=== PATIENT | female | born 1940 | race Hispanic/Latino ===

== ENCOUNTER 2019-07-09 09:43 | Inpatient (IN) | payer MEDICARE ==
[~2019-07-09] VITALS: Ht 152.4 cm; Wt 73.5 kg
[2019-07-09] VITALS (9 sets, daily range): BP systolic 97–121; BP diastolic 59–102
--- OUTSIDE RECORDS SUMMARY | 2019-07-09 09:45 | XMS REPORT ---
Author Author [facility] Address Unknown Phone Unavailable Care Team Providers Care Sed Special Education Teacher Name Role Phone Unavailable Unavailable Payers Payer Name Policy Type Policy Number Effective Date Expiration Date Problems This patient has no known problems. Allergies, Adverse Reactions, Alerts Allergy Name Allergy Type Status Severity Reaction(s) Onset Date Inactive Date Treating Clinician Comments Penicillins DA Active U 2018-06-16 00:00:00 No Known Allergies DA Active U 2018-05-17 00:00:00 No Known Drug Intolerances DA Active U 2009-08-08 00:00:00 No Known Intolerances DA Active U 2009-08-08 00:00:00 Medications This patient has no known medications.
[2019-07-09 10:25] LABS: BASOPHILS # (AUTO) 0.1 (0.0-0.1); BASOPHILS % 0.3 % (0.0-1.0); EOSINOPHILS % 0.2 % (0.0-6.0); HEMATOCRIT 27.4 % (34.2-44.1); HEMOGLOBIN 8.8 g/dL (12.0-16.0); LYMPHOCYTES # (AUTO) 2.5 (1.0-3.2); LYMPHOCYTES % 11.5 % (18.0-39.1); MEAN CORPUSCULAR HEMOGLOBIN 29.2 pg (28-32); MEAN CORPUSCULAR HGB CONC 32.1 g/dL (31-35); MONOCYTES # (AUTO) 1.1 (0.2-0.8); MONOCYTES % 5.3 % (4.4-11.3); NEUTROPHILS # (AUTO) 17.5 (2.1-6.9); NEUTROPHILS % 81.7 % (38.7-80.0); PLATELET COUNT 286 x10e3/uL (140-360); RED BLOOD COUNT 3.01 x10e6/uL (3.6-5.1); RED CELL DISTRIBUTION WIDTH 14.4 % (11.7-14.4)
[2019-07-09 10:27] LABS: BILIRUBIN,URINE NEGATIVE (NEGATIVE); CLARITY,URINE CLEAR (CLEAR); COLOR,URINE YELLOW (YELLOW); KETONES,URINE NEGATIVE (NEGATIVE); LEUKOCYTE ESTERASE ,URINE SMALL (NEGATIVE); NITRITE,URINE NEGATIVE (NEGATIVE); PROTEIN,URINE DIPSTICK NEGATIVE (NEGATIVE); URINE UROBILINOGEN 0.2 mg/dL (0.2 - 1)
[2019-07-09 10:39] LABS: ALANINE AMINOTRANSFERASE 8 IU/L (0-55); ALBUMIN 3.3 g/dL (3.5-5.0); ALBUMIN/GLOBULIN RATIO 0.8 (0.8-2.0); ALKALINE PHOSPHATASE 81 IU/L (40-150); ANION GAP 19.1 mmol/L (8-16); BLOOD UREA NITROGEN 31 mg/dL (7-26); BUN/CREATININE RATIO 18 (6-25); CARBON DIOXIDE 19 mmol/L (22-29); CHLORIDE 103 mmol/L (98-107); CREATINE KINASE 68 IU/L (29-168); CREATININE, SERUM 1.68 mg/dL (0.57-1.11); EST GLOMERULAR FILTRATION RATE 30 ML/MIN (60-); GLUCOSE 172 mg/dL (74-118); MAGNESIUM 1.8 MG/DL (1.3-2.1); POTASSIUM 4.1 mmol/L (3.5-5.1); SODIUM 137 mmol/L (136-145)
[2019-07-09 10:49] LABS: BACTERIA,URINE MANY /HPF; EPITHELIAL CELLS,URINE MANY /LPF
[2019-07-09 10:51] LABS: WBC,URINE (MAN) >50 /HPF (0-5)
[2019-07-09 10:52] LABS: AMORPHOUS SEDIMENT,URINE FEW (FEW)
[2019-07-09] MEDS ORDERED: LISINOPRIL20 MG (10:56)
[2019-07-09] MEDS ORDERED: ATORVASTATIN CA80 MG (10:56)
[2019-07-09] MEDS ORDERED: K DUR10 MEQ (10:56)
[2019-07-09] MEDS ORDERED: WARFARIN SODIUM5 MG (10:56)
[2019-07-09] MEDS ORDERED: CARVEDILOL25 MG (10:56)
[2019-07-09] MEDS ORDERED: ALENDRONATE SOD70 MG (10:56)
[2019-07-09] MEDS ORDERED: LOSARTAN POTASS25 MG (10:56)
[2019-07-09] MEDS ORDERED: OMEPRAZOLE40 MG (10:56)
[2019-07-09] MEDS ORDERED: BENZONATATE100 MG (10:56)
[2019-07-09] MEDS ORDERED: FUROSEMIDE40 MG (10:56)
[2019-07-09] MEDS ORDERED: AMLODIPINE BESY10 MG (10:56)
[2019-07-09] MEDS ORDERED: PANTOPRAZOLE 40 MG 10ML VIAL IV ONE (11:00)
[2019-07-09] MEDS: SODIUM CHLORIDE 0.9% 1000ML 1,000 ML IV STA ×2 (11:03→13:20)
[2019-07-09] MEDS ORDERED: SODIUM CHLORIDE 0.9% 1000ML 1,000 ML IV SCH ×2 (11:07→13:23)
--- NOTE | 2019-07-09 11:12 | NUR ---
MULTIPLE NURSES AND MULTIPLE IV ATTEMPTS UNSUCCESSFUL. LABS OBTAINED, BUT NO IV LINE. AWARE, ORDERING PICC LINE. HS ATTEMPTED ULTRASOUND GUIDED PIV UNSUCCESSFUL WELL.
[2019-07-09] MEDS ORDERED: ONDANSETRON HCL INJ 2MG/ML 2ML 2 MG/ML VIAL IV PRN ×3 (11:15→17:15)
[2019-07-09] MEDS ORDERED: MORPHINE SULFATE 2 MG/ML SYR 1ML IV PRN (11:15)
--- NOTE | 2019-07-09 11:17 | NUR ---
high read on co-ags per lab, need another blue top, lab to come re-draw.
--- NOTE | 2019-07-09 11:26 | Diagnostic Imaging Report ---
EXAMINATION: CHEST SINGLE (PORTABLE) INDICATION: Altered mental status COMPARISON: None FINDINGS: LINES/TUBES:EKG leads overlie the chest. LUNGS:The lung volumes are low. No focal consolidation or pulmonary edema. PLEURA:No pleural effusion or pneumothorax. MEDIASTINUM:The cardiomediastinal silhouette appears normal in size and shape. Atherosclerotic calcifications of the thoracic aorta. BONES/SOFT TISSUES:No acute osseous injury. ABDOMEN:No free air under the diaphragm. IMPRESSION: Low lung volumes. No focal pneumonia or pulmonary edema. Signed by: Hiro Pompa MD on 07/09/2019 11:23 AM
--- NOTE | 2019-07-09 11:26 | Diagnostic Imaging Report ---
EXAMINATION: PELVIS AP 1-2 VIEWS INDICATION: Altered mental status, fall COMPARISON: None FINDINGS: No acute fracture or dislocation. Alignment is anatomic. Degenerative changes of the lower lumbar spine and both hip joints. Phleboliths in the pelvis. Nonobstructive bowel gas pattern. No free air. IMPRESSION: No acute osseous injury. Signed by: Hiro Pompa MD on 07/09/2019 11:22 AM
--- NOTE | 2019-07-09 11:33 | NUR ---
consent on chart for blood and picc line
--- NOTE | 2019-07-09 11:54 | NUR ---
consent signed on chart. extensive teaching and update to spouse and son. son very passive aggressive with staff. pt remains hemodynamically stable. 2nd co-ags redrawn by lab for results.
--- NOTE | 2019-07-09 12:05 | NUR ---
blood banded, id banded, yellow fall socks and banded.
--- NOTE | 2019-07-09 12:05 | Diagnostic Imaging Report ---
Examination: CT BRAIN WO CONTRAST History:Unresponsive. Confusion. Weakness. Fall on Coumadin Comparison studies:None Technique: Axial images were obtained from the skull base to the vertex. Coronal and sagittal images reconstructed from the axial data. Dose modulation, iterative reconstruction, and/or weight based adjustment of the mA/kV was utilized to reduce the radiation dose to as low as reasonably achievable. Intravenous contrast: None Findings: Scalp: No abnormalities. Bones: No fractures, blastic or lytic lesions. Brain sulci: Appropriate for age. Ventricles: Normal in size and configuration. No hydrocephalus. Extra-axial space: No abnormalities. Parenchyma: No masses, hemorrhage, or acute cortical based vascular insults. There is cortical base encephalomalacia involving the left superior parietal lobule and extending to the left periventricular/periatrial white matter. Chronic lacunar infarct in the right centrum semiovale. There are patchy and confluent areas of hypoattenuation in the periventricular and subcortical white matter, nonspecific. Sellar/suprasellar region: No abnormalities. Craniocervical junction: Patent foramen magnum. No Chiari one malformation. Incidental findings: Atherosclerotic calcification of the cavernous and supraclinoid internal carotid and V4 segments of the bilateral vertebral arteries. Impression: No acute intracranial abnormality. Chronic right MCA-ANTITANK ASSAULT GUNNER infarct. Severe chronic microvascular ischemic change. Signed by: Dr. Cecilia Blake M.D. on 07/09/2019 12:02 PM
--- NOTE | 2019-07-09 12:14 | Diagnostic Imaging Report ---
Examination: CT CERVICAL SPINE WO CONTRAST HISTORY:Neck injury after fall. COMPARISON:None. TECHNIQUE: Multidetector helical axial images were obtained without contrast from the foramen magnum to T1. Coronal and sagittal reformatted images were done. Bone and soft tissue windows were evaluated. Dose modulation, iterative reconstruction, and/or weight based adjustment of the mA/kV was utilized to reduce the radiation dose to as low as reasonably achievable. FINDINGS: Alignment:Normal alignment and lordosis. Mild retrolisthesis of C3 on C4 and C4 on C5. Vertebrae: Normal height and density. No acute fracture, infection or neoplasm. Disc space heights: Mildly narrowed at C4-C5. Caliber of spinal canal: Developmentally normal. Posterior fossa and craniocervical junction: Foramen magnum patent. No Chiari 1 malformation. Soft tissues: Opacified left middle ear cavity with sclerosis of the mastoid air cells. Partial opacification of the mastoid cavity on the right. There is superficial/subcutaneous emphysema in the left clavicular region, which could be from recent attempt of a procedure. Degenerative changes: Diffuse disc osteophyte complex at C3-C4 and mild bilateral uncovertebral and facet arthropathy result in mild right neural foraminal narrowing. No left foraminal or canal stenosis. C4-C5: Asymmetric to the right disc osteophyte complex and right uncovertebral and bilateral facet arthropathy result in moderate right neural foraminal narrowing. No left foraminal or canal stenosis. C5-C6: Severe right facet arthropathy results in mild right neural foraminal narrowing at C5-C6. No left foraminal or canal stenosis. Remaining cervical levels demonstrate no disc herniation or canal stenosis. Visualized lung apices: No abnormalities. IMPRESSION: No acute fracture of the cervical spine. Signed by: Dr. Cecilia Blake M.D. on 07/09/2019 12:11 PM
--- NOTE | 2019-07-09 12:19 | Diagnostic Imaging Report ---
EXAM: CT Abdomen and Pelvis WITHOUT intravenous contrast INDICATION: Abdominal pain, diarrhea COMPARISON: None TECHNIQUE: Abdomen and pelvis were scanned utilizing a multidetector helical scanner from the lung base to the pubic symphysis without administration of IV contrast. Coronal and sagittal reformations were obtained. IV CONTRAST: None ORAL CONTRAST: None COMPLICATIONS: None RADIATION DOSE: Total DLP: 522.7 mGy*cm Dose modulation, iterative reconstruction, and/or weight based adjustment of the mA/kV was utilized to reduce the radiation dose to as low as reasonably achievable. FINDINGS: LOWER THORAX: Mild bibasilar dependent subsegmental atelectasis. Mild scattered coronary artery atherosclerotic calcifications. Moderate hiatal hernia. HEPATOBILIARY: No focal liver lesion. Unremarkable gallbladder. SPLEEN: No splenomegaly. PANCREAS: No focal masses or ductal dilatation. ADRENALS: No adrenal nodules. KIDNEYS/URETERS: No hydronephrosis, stones, or solid mass lesions. PELVIC ORGANS/BLADDER: Small amount of air in the bladder. PERITONEUM / RETROPERITONEUM: No free air or fluid. LYMPH NODES: No lymphadenopathy. VESSELS: Atherosclerotic calcifications of the nonaneurysmal abdominal aorta and major branches. GI TRACT: Approximately 15 cm loop of abnormally thickened small bowel in the pelvis with wall thickness measuring up to 16 mm. There is substantial significant mesenteric fat stranding and fluid and a small amount of free air (series 2 image 72). There is mild swelling of the mesenteric vessels. Diffuse colonic diverticulosis including of the right colon without CT evidence of diverticulitis. Mild diffuse pericolonic fat stranding is likely reactive. Normal appendix. BONES AND SOFT TISSUES: No acute osseous injury. No suspicious lytic or blastic lesions. Marked degenerative changes of the visualized spine. Grade 1 retrolisthesis at L1-2, L2-3 and L3-4 and grade 1 anterolisthesis at L4-5. IMPRESSION: Loop of abnormally thickened small bowel in the pelvis with small amount of free air consistent with perforation. Significant associated mesenteric inflammation with mild swirling of the superior mesenteric branches leading up to the affected loop. Findings are concerning for severe enteritis with possible bowel ischemia. Surgical consult is recommended. The above findings were discussed with Dr. Steven on 07/09/2019 12:07 PM, who responded indicating that the communication was understood. Signed by: Hiro Pompa MD on 07/09/2019 12:16 PM
[2019-07-09] MEDS ORDERED: SODIUM CHLORIDE 0.9% 1000ML 1,000 ML IV STA (12:20)
[2019-07-09] MEDS ORDERED: SODIUM CHLORIDE 0.9% 250ML 250 ML IV ONE (12:30)
[2019-07-09] MEDS ORDERED: FUROSEMIDE INJ 10 MG/ML 2 ML VIAL IV PRN (12:30)
[2019-07-09 12:38] LABS: INR > 5.1; PROTHROMBIN TIME > 100.0 seconds (11.9-14.5)
[2019-07-09 12:39] LABS: PARTIAL THROMBOPLASTIN TIME > 150.0 seconds (23.8-35.5)
[2019-07-09] MEDS: MEROPENEM 1GRAM 1 GM in SODIUM CHLORIDE 0.9% 100 ML 100 ML IV SCH ×2 (13:15→21:19)
--- NOTE | 2019-07-09 13:20 | NUR ---
called lab regarding need for lactic redraw that was due at 1240 per stat order. had delay for ivf d/t no IV ACCESS. had to wait for 2nd inr draw and report. inr too high and picc line cannot place. did central line access. court gave icu bed number, ivf still running and md wanted to wait til ivf finished for 2nd lactic draw, lab notified and pt to icu 191 and lab called for repeat stat lactic draw since ivf's almost completed.
[2019-07-09] MEDS: PANTOPRAZOLE 40 MG 10ML VIAL IV SCH ×2 (13:30→21:19)
[2019-07-09] MEDS ORDERED: PHYTONADIONE 10 MG/ML AMP SC ONE (13:45)
--- NOTE | 2019-07-09 14:22 | NUR ---
wellington called back and spoke with md xiong or called back for alejandro regarding pt
[2019-07-09] MEDS ORDERED: HEPARIN SOD/SOD CHLORIDE 1,000 ML ONE (14:37)
[2019-07-09 15:49] LABS: HEMOGLOBIN 6.8 g/dL (12.0-16.0)
[2019-07-09 15:50] LABS: HEMATOCRIT 21.2 % (34.2-44.1)
--- NOTE | 2019-07-09 17:01 | History and Physical ---
PRIMARY CARE PHYSICIAN: Yousuf Perez MD. CONSULTANTS: 1. Yuri Coyle MD. 2. Gigi Browning MD. CHIEF COMPLAINT: Rectal bleed, abdominal pain, and ischemic bowel. HISTORY OF PRESENT ILLNESS: This is a 79-year-old female, not much history I can obtain at this time. The patient is about to go to the operating room with Dr. Yuri Coyle. The patient has coagulopathy, 2 Jumbo units of FFP was given. The patient is on anticoagulant therapy for atrial fibrillation. Apparently, came in with abdominal pain and rectal bleed. CT scan of the abdomen and pelvis shown a loop of abnormal thickening of small bowel and pelvis, small amount of free air consistent with perforation. Mesenteric inflammation. Severe enteritis. Bowel ischemia. Surgical intervention is pending at this time. Her hemoglobin and hematocrit dropped down from 8.8 to 6.8 and 21.2. Other include stool for occult blood is positive. Obviously, the patient with acute blood loss anemia with lactic acid of 2.6. The patient also had a BUN and creatinine of 31 and 1.68 respectively. Coagulation, the patient's INR is greater than 5. Her PTT is greater than 150. Her PT is greater than 100. The patient is severely coagulopathy at this time due to most likely acute peritonitis along with no coagulation. The patient is critically stable at this time. 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 Hypertension, osteoporosis, dyslipidemia, reflux. Anticoagulant therapy with warfarin 5 mg daily. 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 SOCIAL HISTORY: The patient lives with her family, very well family support. ALLERGIES: NO KNOWN ALLERGIES. HOME MEDICATIONS: Alendronate, Norvasc, Lipitor, Tessalon Perles, Coreg, Lasix, lisinopril, losartan, omeprazole, potassium, and warfarin. PHYSICAL EXAMINATION: VITAL SIGNS: Temperature is 98, blood pressure 120/54, pulse rate is 81, and respirations 20. GENERAL: The patient is awake. She is not in any distress. She is critically ill, however. HEENT: Normocephalic and atraumatic. Anicteric. NECK: Supple grossly. PULMONARY: Diminished breath sounds. CARDIOVASCULAR: Irregularly irregular rate control. ABDOMEN: Non-distention. Generalized discomfort. No rebound. EXTREMITIES: No cyanosis or edema. NEUROLOGIC: Limited at this time. LABORATORY DATA: As mentioned above. Sodium is 137, potassium 4.1, chloride 103, bicarb 19, BUN 31, creatinine 1.6, and glucose is 172. Lactic acid 2.6. AST 9, ALT 8, and alkaline phosphatase 81. Albumin is 3.3. WBC 21, hemoglobin 8.8 down to 6.8, hematocrit 27.2 down to 21.2, and platelets 286. Fecal occult blood positive. IMPRESSION: 1. Acute ischemic bowel associated with peritonitis, leukocytosis, and rectal bleed, GI bleed. 2. Severely coagulopathy, most likely a combination of medication and current status. 3. Atrial fibrillation, rate controlled. 4. Anticoagulant therapy. 5. History of cerebrovascular accident, hypertension, dyslipidemia, and diabetes. PLAN: Supportive measure. Surgical intervention. FFP. Blood transfusion. Repeat lab work. Surgical intervention. Antibiotics. We will monitor this patient closely and after surgical intervention. The patient will need to continue with ICU care. Consultation with critical care with Dr. Willie Moon on-call. MD MARTI Dominguez/DAVID /[id number]
[2019-07-09] MEDS: MORPHINE SULFATE 2 MG/ML SYR 1ML IV PRN ×2 (17:35→23:58)
--- NOTE | 2019-07-09 18:47 | Consultation ---
DATE OF CONSULTATION: Pulmonary Critical Care Consultation CHIEF COMPLAINT: Abdominal pain, intestinal perforation, and possible ischemic bowel. HISTORY OF PRESENT ILLNESS: The patient is a 79-year-old woman with a history of atrial fibrillation and 3 prior strokes. She was last hospitalized about a year ago for a cerebrovascular accident. She has been on warfarin since that time. She does not have any history of prior diverticulitis or gastrointestinal problems. Two to three days ago, she developed some abdominal pain. She did not have any fevers. She did not have any vomiting. She did have some diarrhea. She came to the emergency department and was found to have a leukocytosis. A CT scan of the abdomen and pelvis showed findings consistent with severe enteritis and possible ischemic bowel. She also had free air consistent with a perforation. She is now in the ICU and has been seen by General Surgery. She is awaiting laparotomy. She had an INR that was greater than 5.1 and the PT that was greater than 100. She has received 10 mg of vitamin K and is now receiving fresh frozen plasma. PAST MEDICAL HISTORY: 1. Prior cerebrovascular accidents x3. 2. Atrial fibrillation. 3. Hypertension. PAST SURGICAL HISTORY: Status post hysterectomy. SOCIAL HISTORY: The patient is not a smoker. She is not a drinker. ALLERGIES: THERE ARE NO KNOWN DRUG ALLERGIES. REVIEW OF SYSTEMS: There was no fever. She is not having any headache. She has no neck pain. She is not having any chest pain or difficulty breathing. She does have abdominal pain. There is some diarrhea. She has no leg edema. PHYSICAL EXAMINATION: VITAL SIGNS: The patient is afebrile. The blood pressure is 120/54 and the pulse is 81. Saturation is 98%. HEENT: Shows no facial swelling or erythema. CARDIAC: Reveals a regular rate and rhythm with normal S1 and S2. LUNGS: Auscultation of lungs reveals clear breath sounds bilaterally. There is no wheezing. ABDOMEN: Tender. There is no rebound. EXTREMITIES: Shows no leg edema or calf tenderness. There is a femoral line in the right groin. LABORATORY DATA: BUN to creatinine ratio is 31 to 1.68 with a bicarbonate of 19. The white blood cell count is 21.4 and hemoglobin is 8.8. The platelet count is 286. Urinalysis shows greater than 20 white blood cells. IMPRESSION: 1. Ischemic bowel and peritonitis with severe sepsis, present on admission. 2. Coagulopathy secondary to warfarin and sepsis. 3. Acute kidney injury. 4. Atrial fibrillation. 5. Hypertension. 6. Prior cerebrovascular accidents. PLAN: 1. The patient is currently on IV antibiotics. 2. She has received 30 mL/kg of IV fluid. 3. We are awaiting laparotomy and surgical intervention. 4. Complete FFP. 5. Monitor coags. 6. Continue to monitor renal function. Willie Moon MD Rick/MODL /[id number]
[2019-07-09] MEDS: DEXTROSE 5%/LACTATED RINGERS 1,000 ML IV SCH (18:57)
--- NOTE | 2019-07-09 19:23 | Consultation ---
DATE OF CONSULTATION: 07/09/2019 HISTORY OF PRESENT ILLNESS: The patient is a 79-year-old female, presenting to the emergency room with complaints of abdominal pain. She says she has had lower abdominal pain for some time, but much worse over the last few days. Evaluation reveal signs of sepsis. CT of the abdomen and pelvis revealed very thickened and inflamed segment of small bowel with appeared to be area of perforation. PAST MEDICAL HISTORY: Significant for hypertension, hypercholesterolemia, intermittent atrial fibrillation. She has had previous hysterectomy. She states she has had previous cerebrovascular accident. She has had previous abdominal surgery and she has a hysterectomy. MEDICATIONS: At home were alendronate, amlodipine, atorvastatin, benzonatate, carvedilol, Lasix, lisinopril, losartan, omeprazole, potassium, and warfarin. ALLERGIES: SHE HAS NO KNOWN ALLERGIES. FAMILY HISTORY: Noncontributory. SOCIAL HISTORY: The patient lives with her family. Does not smoke cigarettes or drink alcohol. REVIEW OF SYSTEMS: Cannot be obtained. PHYSICAL EXAMINATION: GENERAL: The patient is alert. Does not really answer questions. She has complains of lower abdominal pain, however. HEENT: The sclerae are not icteric. NECK: Supple with no masses. LUNGS: Equal breath sounds are clear bilaterally. CARDIAC: Regular rate and rhythm with no murmur. ABDOMEN: Tender in the lower abdomen with signs of peritonitis. There is mild distention. There was no organomegaly. EXTREMITIES: Have no edema. NEUROLOGIC: Difficult to assess, though she does move her upper extremities. Pupils are equal, round, and reactive to light. LABORATORY TESTS: The white blood cell count is elevated at 21.4, hemoglobin 8.8, and hematocrit 27.4. Chemistries revealed elevated lactic acid on arrival, mild metabolic acidosis, BUN elevated at 31 and creatinine 1.7. Coags are significantly prolonged. ASSESSMENT: A 79-year-old female with what appears to be an inflamed segment of small bowel with probable perforation contained in the lower abdomen with signs of peritonitis. She has abnormal coagulation studies and be transfuse with fresh frozen plasma, but she will need to undergo surgery, which would be exploratory laparotomy with probable small bowel resection. Proposed surgery was explained to the patient and her family including risks, benefits, and alternatives and they understands. They had the opportunity to ask questions. Thank you for asking me to see Ms. Salmon. Yuri W MD PAPI Coyle/DAVID /[id number]
--- NOTE | 2019-07-09 19:32 | Operative Report ---
DATE OF PROCEDURE: 07/09/2019 SURGEON: Yuri Coyle MD PREOPERATIVE DIAGNOSIS: Small bowel gangrene with contained perforation. POSTOPERATIVE DIAGNOSIS: Small bowel gangrene with contained perforation secondary to partial small bowel volvulus. PROCEDURES: Exploratory laparotomy, small bowel resection, and lysis of adhesions. UMBRELLA TIPPER HAND: None. ANESTHESIA: General endotracheal. INDICATIONS AND FINDINGS: The patient is a 79-year-old female, admitted to the hospital with complaints of severe lower abdominal pain. Workup reveals portion of small bowel that was very thickened and inflamed appearing with a contained perforation. At surgery, there was partially twisted the segment of small bowel, which was in the distal ileum, which was gangrenous. No priyanka perforation was noted. There was some hemorrhagic areas in the adjacent bowel, but this all appeared viable. TECHNIQUE: After adequate general endotracheal anesthesia and patient in supine position, the abdomen was prepped and draped in sterile fashion with ChloraPrep solution. Through a lower midline incision, the peritoneal cavity was entered. There were adhesions to the abdominal wall involving omentum, which were lysed. There was a very thickened and inflamed gangrenous segment of small bowel, which was free from the lower abdomen. There were some adhesions, which were lysed, appeared to have caused a partial volvulus and a closed loop obstruction. The bowel was delivered up into the wound. The terminal ileum appeared viable. This was about the distal 12 cm of terminal ileum and the bowel proximal. The area of gangrene also appeared viable. The gangrenous bowel was resected. The bowel was appeared viable. It was divided with a MARCO stapler proximal and distally and mesentery divided with LigaSure device. Remaining small bowel examined and all appeared viable. Colon appeared viable. The anastomosis was then made between the proximal and distal bowel with a MARCO stapler and TL60 stapler. The mesentery defect was closed with 3-0 Vicryl. The peritoneal cavity was irrigated with saline and inspected for hemostasis, which was seen to be adequate. Irrigated further with saline. All fluid aspirated and inspected for hemostasis, which was seen to be adequate. The wound was then closed. The fascia was closed with running suture of #1 PDS. Subcutaneous tissue was irrigated with saline. Skin was closed with praanv. Sterile dressing was applied. The patient tolerated the procedure well. Estimated blood loss was 100 mL. There were no complications. All counts were correct and the patient was taken to the intensive care unit in critical, but stable condition. MD PAPI Elias/DAVID /[id number] cc: MD Nitin Mendoza MD
[2019-07-09] MEDS ORDERED: MEROPENEM 1 GM VIAL ONE (21:16)
[2019-07-09] MEDS ORDERED: MEROPENEM 1GM 100 ML IV ONE (21:17)
[2019-07-09 21:27] LABS: BASOPHILS % 0.2 % (0.0-1.0); HEMATOCRIT 25.1 % (34.2-44.1); HEMOGLOBIN 8.7 g/dL (12.0-16.0); LYMPHOCYTES # (AUTO) 0.9 (1.0-3.2); LYMPHOCYTES % 5.7 % (18.0-39.1); MEAN CORPUSCULAR HEMOGLOBIN 30.1 pg (28-32); MEAN CORPUSCULAR HGB CONC 34.7 g/dL (31-35); MEAN CORPUSCULAR VOLUME 86.9 fL (81-99); MONOCYTES # (AUTO) 0.8 (0.2-0.8); MONOCYTES % 5.1 % (4.4-11.3); NEUTROPHILS # (AUTO) 13.1 (2.1-6.9); NEUTROPHILS % 87.9 % (38.7-80.0); PLATELET COUNT 155 x10e3/uL (140-360); RED BLOOD COUNT 2.89 x10e6/uL (3.6-5.1); RED CELL DISTRIBUTION WIDTH 14.2 % (11.7-14.4)
[2019-07-09 21:37] LABS: INR 1.29; PROTHROMBIN TIME 16.7 seconds (11.9-14.5)
[2019-07-09 21:45] LABS: CREATINE KINASE 159 IU/L (29-168)
[2019-07-09] MEDS: METRONIDAZOLE 500MG/NS 100ML 100 ML IV SCH (21:53)
[2019-07-09 22:05] LABS: CALCIUM 7.9 mg/dL (8.4-10.2); CREATININE, SERUM 0.95 mg/dL (0.57-1.11)
[2019-07-09] MEDS ORDERED: POTASSIUM CHLORIDE 20MEQ/100ML 100 ML IV ONE (22:45)
[2019-07-10] VITALS (24 sets, daily range): BP systolic 98–143; BP diastolic 55–77
--- NOTE | 2019-07-10 02:39 | Consultation ---
DATE OF CONSULTATION: 07/09/2019 HISTORY OF PRESENT ILLNESS: This is a 79-year-old, who presented to the hospital because of some abdominal pain and rectal bleeding. CAT scan of abdomen and pelvis showed thickening of the small bowel and pelvis with small amount of free air consistent with perforations and severe enteritis, possible bowel ischemia. The patient had underwent surgery exploratory laparotomy with gangrenous small bowel resection. She is currently in the ICU in stable condition. PAST MEDICAL HISTORY: Her past medical problems are significant for atrial fibrillation with ischemic CVA, history of anticoagulation therapy, hypertension, osteoporosis, dyslipidemia, reflux. ALLERGIES: NONE. MEDICATION: At home include alendronate, Norvasc, Lipitor, Tessalon Perles, Coreg, Lasix, lisinopril, losartan, omeprazole, potassium, and warfarin. SOCIAL HISTORY: No alcohol use. FAMILY HISTORY: Noncontributory. REVIEW OF SYSTEMS: At this point, unobtainable. PHYSICAL EXAMINATION: GENERAL: Lying in bed, appears to be stable postop. VITAL SIGNS: Afebrile currently HEAD, EYES, EARS, NOSE, AND THROAT: Normocephalic, atraumatic. NG tube is in place. HEART: Regular. LUNGS: Clear. ABDOMEN: Soft at this point. EXTREMITIES: There is no clubbing. LABORATORY DATA: Hemoglobin was 6.8, hematocrit 21, . BUN 31, creatinine 1.68. CAT scan as mentioned before. IMPRESSION: 1. Ischemic bowel,status post resection. 2. Gastrointestinal bleed to ischemic bowel. 3. History of atrial fibrillation. RECOMMENDATION: Continue Entocort. Current supportive care with antibiotic. Follow clinically and postoperatively as well as follow labs. This has been discussed with the patient and with the family at bedside in long and detail. Gigi Browning MD DHD/MODL /[id number] cc: MD Yousuf Dominguez MD
[2019-07-10] MEDS: DEXTROSE 5%/LACTATED RINGERS 1,000 ML IV SCH ×3 (04:55→17:05)
[2019-07-10] MEDS: METRONIDAZOLE 500MG/NS 100ML 100 ML IV SCH ×3 (06:10→21:58)
[2019-07-10 06:18] LABS: BASOPHILS % 0.1 % (0.0-1.0); HEMATOCRIT 24.4 % (34.2-44.1); HEMOGLOBIN 8.4 g/dL (12.0-16.0); LYMPHOCYTES % 5.6 % (18.0-39.1); MEAN CORPUSCULAR HGB CONC 34.4 g/dL (31-35); MEAN CORPUSCULAR VOLUME 87.1 fL (81-99); MONOCYTES # (AUTO) 1.4 (0.2-0.8); MONOCYTES % 7.5 % (4.4-11.3); NEUTROPHILS # (AUTO) 15.8 (2.1-6.9); NEUTROPHILS % 85.2 % (38.7-80.0); PLATELET COUNT 164 x10e3/uL (140-360); RED CELL DISTRIBUTION WIDTH 14.4 % (11.7-14.4)
[2019-07-10 06:28] LABS: INR 1.19; PROTHROMBIN TIME 15.7 seconds (11.9-14.5)
[2019-07-10 06:36] LABS: CREATINE KINASE 176 IU/L (29-168)
[2019-07-10 06:38] LABS: ALANINE AMINOTRANSFERASE 10 IU/L (0-55); ALBUMIN/GLOBULIN RATIO 0.9 (0.8-2.0); ALKALINE PHOSPHATASE 58 IU/L (40-150); ANION GAP 10.2 mmol/L (8-16); BLOOD UREA NITROGEN 14 mg/dL (7-26); BUN/CREATININE RATIO 17 (6-25); CALCIUM 8.2 mg/dL (8.4-10.2); CARBON DIOXIDE 26 mmol/L (22-29); CHLORIDE 108 mmol/L (98-107); CREATININE, SERUM 0.82 mg/dL (0.57-1.11); EST GLOMERULAR FILTRATION RATE > 60 ML/MIN (60-); GLUCOSE 182 mg/dL (74-118); POTASSIUM 3.2 mmol/L (3.5-5.1); SODIUM 141 mmol/L (136-145)
--- NOTE | 2019-07-10 06:43 | Diagnostic Imaging Report ---
EXAMINATION: CHEST SINGLE (PORTABLE) COMPARISON: Chest x-ray 07/09/2019 INDICATION: Sepsis ^sepsis ^[id number] DISCUSSION: Frontal view of the chest obtained at 0552 hours. Lung volumes are low. HEART AND MEDIASTINUM: The heart is top normal in size to mildly enlarged. LINES: None. LUNGS: Central pulmonary vasculature is prominent due to low lung volumes. No gross infiltrates. PLEURA: No pleural effusion or pneumothorax. BONES AND SOFT TISSUES: No focal osseous lesion. The soft tissues are normal. IMPRESSION: Compromised examination due to low lung volumes. This results in prominence of the central pulmonary vasculature. No infiltrates on this image. Signed by: Dr. Winnie Quinones MD on 07/10/2019 6:39 AM
[2019-07-10] MEDS: PANTOPRAZOLE 40 MG 10ML VIAL IV SCH (09:00)
[2019-07-10] MEDS: MEROPENEM 1GM 100 ML IV SCH ×2 (09:29→20:32)
--- NOTE | 2019-07-10 12:46 | Progress Note ---
DATE: SUBJECTIVE: The patient underwent laparotomy yesterday. She had a partial small bowel resection associated with ischemic bowel and perforation. She is now back in the ICU and is doing well. She is off pressors. PHYSICAL EXAMINATION: VITAL SIGNS: The blood pressure is 143/60, saturation is 96% on 2 L. HEENT: Shows no facial swelling or erythema. CARDIAC: Reveals a regular rate and rhythm with normal S1 and S2. LUNGS: Auscultation of lungs reveals decreased breath sounds at the bases. ABDOMEN: Soft. There is some tenderness postoperative. There is no leg edema. There are SCDs in place. IMPRESSION: 1. Ischemic bowel and peritonitis with severe sepsis present on admission. 2. Coagulopathy that is being corrected with vitamin K. 3. Acute kidney injury. 4. Atrial fibrillation. 5. Prior cerebrovascular accidents. 6. Hypertension. PLAN: 1. Continue current antibiotics. 2. Continue to monitor kidney function and electrolytes. 3. Continue to monitor blood pressure and restart home medications. 4. Continue DVT prophylaxis with sequential venous compression devices. Willie Moon MD [facility]/MODL /[id number]
[2019-07-10] MEDS: AMLODIPINE BESYLATE 10 MG TAB PO SCH (13:00)
--- NOTE | 2019-07-10 16:03 | NUR ---
RD Recommendation for Physician: -Advance to GI soft diet when medically appropriate Plan of Care: RD following, monitoring for tolerance and adequacy Nutrition reason for involvement: MST Primary Diagnose(s): coagulopathy, ischemia of bowel, renal insufficiency, sepsis, small bowel perforation PMH: afib with ischemic CVA, HTN, osteoporosis, dyslipidemia, and reflux Ht: 60 in Wt:170 lb BMI: 33 kg/m2 IBW:[address] Assessment: (07/10/19) Chart reviewed. Labs and meds reviewed. Pt is a 79 year old female admitted with coagulopathy, ischemia of bowel, renal insufficiency, sepsis, and small bowel perforation. Pt is post-op day 1 from exploratory lap with bowel resection. Spoke to family member at bedside since pt was sleeping. Pt was NPO at time of visit. Family member reported pt usually eats all of her meals and her wt has been stable. Pt consumes soft foods due to chewing issues. Family member thinks pt usually weighs 151 lbs; however, pt has a wt of 170 lbs in chart. Will continue to monitor. Current Diet: NPO Malnutrition Evaluation (07/10/19) The patient does not meet criteria for a specified degree of malnutrition at this time. Will re-evaluate at follow-up as appropriate. Diet Education Needs Assessment: Diet education not indicated at this time. Nutrition Care Level: Low Signed: Virgen Garcia, RD, LD
[2019-07-10] MEDS: LISINOPRIL 20 MG TAB PO SCH (17:00)
[2019-07-10] MEDS ORDERED: FENTANYL CITRATE/PF 100MCG/2 ML INJ ONE (17:52)
[2019-07-10] MEDS ORDERED: ROCURONIUM BROMIDE 10 MG/ML 5ML VIAL ONE (19:21)
[2019-07-10] MEDS ORDERED: SEVOFLURANE INHAL SOLN 250 ML PEN BTL ONE (19:21)
[2019-07-10] MEDS ORDERED: EPHEDRINE SULFATE INJ 50 MG/10 ML SYR ONE (19:21)
[2019-07-10] MEDS ORDERED: LIDOCAINE HCL 2% LOCAL INJ 5 ML SDV VIAL INJ ONE (19:21)
[2019-07-10] MEDS ORDERED: PROPOFOL IV EMULSION 10 MG/ML 20 ML VIAL ONE (19:21)
[2019-07-10] MEDS ORDERED: ZOLPIDEM TARTRATE 5 MG TAB PO PRN (21:00)
[2019-07-11] VITALS (25 sets, daily range): BP systolic 91–142; BP diastolic 52–83
[2019-07-11] MEDS: DEXTROSE 5%/LACTATED RINGERS 1,000 ML IV SCH ×2 (02:30→16:19)
[2019-07-11 04:57] LABS: BASOPHILS % 0.1 % (0.0-1.0); EOSINOPHILS # (AUTO) 0.1 (0.0-0.4); EOSINOPHILS % 0.4 % (0.0-6.0); HEMOGLOBIN 7.7 g/dL (12.0-16.0); LYMPHOCYTES % 13.1 % (18.0-39.1); MEAN CORPUSCULAR HGB CONC 33.8 g/dL (31-35); MEAN CORPUSCULAR VOLUME 88.7 fL (81-99); MONOCYTES # (AUTO) 1.5 (0.2-0.8); MONOCYTES % 9.6 % (4.4-11.3); NEUTROPHILS # (AUTO) 11.6 (2.1-6.9); NEUTROPHILS % 74.9 % (38.7-80.0); PLATELET COUNT 174 x10e3/uL (140-360); RED BLOOD COUNT 2.57 x10e6/uL (3.6-5.1); RED CELL DISTRIBUTION WIDTH 14.5 % (11.7-14.4)
[2019-07-11 05:17] LABS: ALANINE AMINOTRANSFERASE 8 IU/L (0-55); ALBUMIN 2.7 g/dL (3.5-5.0); ALBUMIN/GLOBULIN RATIO 0.8 (0.8-2.0); ALKALINE PHOSPHATASE 59 IU/L (40-150); ANION GAP 9.1 mmol/L (8-16); BLOOD UREA NITROGEN 10 mg/dL (7-26); BUN/CREATININE RATIO 14 (6-25); CALCIUM 8.6 mg/dL (8.4-10.2); CARBON DIOXIDE 27 mmol/L (22-29); CHLORIDE 107 mmol/L (98-107); CREATININE, SERUM 0.71 mg/dL (0.57-1.11); EST GLOMERULAR FILTRATION RATE > 60 ML/MIN (60-); GLUCOSE 143 mg/dL (74-118); HEMATOCRIT 22.8 % (34.2-44.1); POTASSIUM 3.1 mmol/L (3.5-5.1); SODIUM 140 mmol/L (136-145)
[2019-07-11] MEDS: METRONIDAZOLE 500MG/NS 100ML 100 ML IV SCH ×3 (06:02→22:00)
[2019-07-11] MEDS ORDERED: HYDROCODONE/APAP 5MG-325MG TAB PO PRN (06:30)
[2019-07-11] MEDS ORDERED: POTASSIUM CHLORIDE 20 MEQ TAB CR PO ONE (08:00)
[2019-07-11] MEDS: AMLODIPINE BESYLATE 10 MG TAB PO SCH (09:00)
[2019-07-11] MEDS: PANTOPRAZOLE 40 MG 10ML VIAL IV SCH ×2 (09:00→20:52)
[2019-07-11] MEDS: MEROPENEM 1GM 100 ML IV SCH ×2 (09:00→20:52)
[2019-07-11] MEDS ORDERED: SODIUM CHLORIDE 0.9% 250ML 250 ML ONE (10:32)
--- NOTE | 2019-07-11 12:50 | NUR ---
Visit made by the Spiritual Care Department Pastoral Visitor, Rebecca Ochoa. PV provided pastoral presence, prayer, hospitality, communion, and supportive listening. Pastoral Visitor informed pt/family of the scope of Coater Helper Services and availability. CHANTELLE TRIPP Gate Supervisor Spiritual Care Department O: [phone] Pager: [phone] ([phone] number calling from)
[2019-07-11] MEDS: LISINOPRIL 20 MG TAB PO SCH (16:19)
[2019-07-11] MEDS ORDERED: DILTIAZEM HCL 125 ML IV SCH (17:15)
[2019-07-11] MEDS ORDERED: DILTIAZEM HCL 5 MG/ML 5 ML VIAL IV STA (17:18)
--- NOTE | 2019-07-11 17:34 | Progress Note ---
DATE: SUBJECTIVE: The patient feels better. She is tolerating a clear liquid diet. She was ambulating today. Physical therapy has been working with the patient. PHYSICAL EXAMINATION: VITAL SIGNS: Stable. HEENT: Shows no facial swelling or erythema. CARDIAC: Reveals regular rate and rhythm with normal S1, S2. LUNGS: Auscultation of lungs reveals clear breath sounds bilaterally. There is no wheezing. ABDOMEN: Soft, nontender. There is no rebound or guarding. EXTREMITIES: Show no leg edema or calf tenderness. SKIN: Shows no rashes. IMPRESSION: 1. Ischemic bowel and peritonitis with severe sepsis, present on admission. 2. Acute kidney injury. 3. Prior cerebrovascular accidents. 4. Hypertension. 5. Hypokalemia. PLAN: 1. Continue antibiotics. 2. Advance diet as tolerated. 3. Replace potassium. 4. Continue current cardiac regimen. MD VIDA Prince/DAVID /[id number]
[2019-07-11] MEDS ORDERED: ADENOSINE 6 MG/2 ML VIAL IV ONE (18:00)
--- NOTE | 2019-07-11 19:30 | NUR ---
Received patiently calm in bed, no complaints raised. on Cardizem drip, running a sinus rhythm
--- NOTE | 2019-07-11 20:00 | NUR ---
Patient had a run of non-sustained SVT, but remains stable on the Cardizem drip
[2019-07-12] VITALS (16 sets, daily range): BP systolic 104–138; BP diastolic 54–89
[2019-07-12] MEDS: MORPHINE SULFATE 2 MG/ML SYR 1ML IV PRN (06:00)
[2019-07-12] MEDS: METRONIDAZOLE 500MG/NS 100ML 100 ML IV SCH ×3 (06:00→21:55)
--- NOTE | 2019-07-12 06:00 | NUR ---
patient slept well the whole night, no complaints raised, central line dressing done
--- NOTE | 2019-07-12 07:14 | NUR ---
handed over stable
[2019-07-12 08:01] LABS: BASOPHILS # (AUTO) 0.1 (0.0-0.1); BASOPHILS % 0.4 % (0.0-1.0); EOSINOPHILS # (AUTO) 0.6 (0.0-0.4); EOSINOPHILS % 4.2 % (0.0-6.0); HEMATOCRIT 28.4 % (34.2-44.1); HEMOGLOBIN 9.6 g/dL (12.0-16.0); LYMPHOCYTES # (AUTO) 3.2 (1.0-3.2); LYMPHOCYTES % 21.4 % (18.0-39.1); MEAN CORPUSCULAR HEMOGLOBIN 29.6 pg (28-32); MEAN CORPUSCULAR HGB CONC 33.8 g/dL (31-35); MEAN CORPUSCULAR VOLUME 87.7 fL (81-99); MONOCYTES # (AUTO) 1.1 (0.2-0.8); MONOCYTES % 7.5 % (4.4-11.3); NEUTROPHILS # (AUTO) 9.6 (2.1-6.9); NEUTROPHILS % 64.7 % (38.7-80.0); PLATELET COUNT 257 x10e3/uL (140-360); RED BLOOD COUNT 3.24 x10e6/uL (3.6-5.1); RED CELL DISTRIBUTION WIDTH 14.4 % (11.7-14.4)
[2019-07-12 08:20] LABS: ALANINE AMINOTRANSFERASE 9 IU/L (0-55); ALBUMIN 2.7 g/dL (3.5-5.0); ALBUMIN/GLOBULIN RATIO 0.7 (0.8-2.0); ALKALINE PHOSPHATASE 66 IU/L (40-150); ANION GAP 12.8 mmol/L (8-16); BLOOD UREA NITROGEN 11 mg/dL (7-26); BUN/CREATININE RATIO 16 (6-25); CALCIUM 8.7 mg/dL (8.4-10.2); CARBON DIOXIDE 25 mmol/L (22-29); CHLORIDE 102 mmol/L (98-107); CREATININE, SERUM 0.67 mg/dL (0.57-1.11); EST GLOMERULAR FILTRATION RATE > 60 ML/MIN (60-); GLUCOSE 104 mg/dL (74-118); POTASSIUM 3.8 mmol/L (3.5-5.1); SODIUM 136 mmol/L (136-145)
[2019-07-12] MEDS: AMLODIPINE BESYLATE 10 MG TAB PO SCH (09:00)
--- NOTE | 2019-07-12 09:52 | Progress Note ---
DATE: Pulmonary Critical Care Progress Note SUBJECTIVE: The patient had some SVT yesterday morning and again yesterday evening. She required adenosine x1 and is on a Cardizem drip at 5 mg an hour. She has less abdominal pain. She is tolerating p.o. She was up with physical therapy. PHYSICAL EXAMINATION: VITAL SIGNS: The patient is afebrile. The blood pressure is 121/56 and the saturation is 94%. She is on room air. HEENT: Shows no facial swelling or erythema. CARDIAC: Reveals a regular rate and rhythm with a normal S1 and S2. There are no murmurs or rubs. PULMONARY: Auscultation of lungs reveal rhonchorous breath sounds bilaterally. There is no wheezing. ABDOMEN: Soft and nontender. There is no rebound or guarding. EXTREMITIES: Show no leg edema or calf tenderness. There is no cyanosis or clubbing. SKIN: Shows no rashes. NEUROLOGICAL: Shows some residual speech problems and weakness from a prior cerebrovascular accident. LABORATORY DATA: White blood cell count is 15.5 and the hemoglobin is 7.7. Other electrolytes are within normal limits. IMPRESSION: 1. Ischemic bowel, peritonitis, and severe sepsis, present on admission. 2. Recurrent supraventricular tachycardia. 3. Prior cerebrovascular accidents. 4. Hypokalemia. 5. Hypertension. PLAN: 1. Consult Cardiology and discuss need for any ongoing antiarrhythmics. 2. Repeat potassium and electrolytes. 3. Continue physical therapy. 4. Continue IV antibiotics and switch to p.o. as soon as possible. 5. Remove central line and place peripheral line as soon as possible. Willie Moon MD [facility]/MODL /[id number]
[2019-07-12] MEDS: MEROPENEM 1GM 100 ML IV SCH ×2 (09:56→20:46)
[2019-07-12] MEDS: CARVEDILOL 12.5 MG TAB PO SCH ×2 (09:56→16:40)
[2019-07-12] MEDS: POTASSIUM CHLORIDE 20 MEQ TAB CR PO SCH (09:56)
--- NOTE | 2019-07-12 14:43 | Consultation ---
DATE OF CONSULTATION: Cardiology Consultation CHIEF COMPLAINT: Abdominal pain and ischemic bowel. HISTORY OF PRESENT ILLNESS: The patient is a 79-year-old, who was admitted to the ICU with abdominal pain and diarrhea, and CT scan of the abdomen demonstrated ischemic bowel. The patient had surgery and a portion of gangrenous small bowel was resected. The patient was recovering in the ICU and developed some transient atrial fibrillation. The patient has subsequently converted back to normal sinus rhythm. PAST MEDICAL HISTORY: Significant for: 1. Prior cerebrovascular accident. 2. History of paroxysmal atrial fibrillation. 3. Hypertension. 4. Previous hysterectomy. SOCIAL HISTORY: The patient does not smoke and does not drink. FAMILY HISTORY: There is no known family history of coronary artery disease. PHYSICAL EXAMINATION: GENERAL: The patient is lethargic. VITAL SIGNS: Included temperature of 98.8, blood pressure 110/60, and pulse was currently 78. HEAD, EARS, EYES, NOSE, AND THROAT: The patient's cranium was normocephalic and atraumatic. Extraocular muscles intact. NECK: Supple. No jugular venous distention. CHEST: Demonstrated rhonchi bilaterally. CARDIAC: Demonstrated normal S1 and S2 with a short 2/6 systolic murmur. CHEST: Demonstrated decreased breath sounds bilaterally. ABDOMEN: The patient had recent surgery. EXTREMITIES: There is no clubbing, no cyanosis, and no edema. NEUROLOGIC: The patient was somewhat lethargic, but moving all the extremities. TELEMETRY: The patient's telemetry demonstrated normal sinus rhythm. IMPRESSION: The patient is a 79-year-old with an episode of ischemic bowel and postoperative atrial fibrillation. The patient was given some IV Cardizem and is now back in normal sinus rhythm. I feel the patient's paroxysmal atrial fibrillation is related to the increased catecholamines from the recent surgery. I would favor observing on telemetry for now without any further antiarrhythmics. MD CASSY Bonds/MODL /[id number] cc: Nitin Mejias MD
--- NOTE | 2019-07-12 18:15 | NUR ---
Received patient from room 191 to room 298. No acute distress noted. at bedside. Patient and oriented to room and policies. Call light within reach. Bed in the lowest position. Bed alarm on.
--- NOTE | 2019-07-12 19:06 | NUR ---
Bedside shift report given to oncoming nurse. Patient is resting in bed. No acute distress noted. at bedside. Call light within reach. Bed in the lowest position.
[2019-07-12] MEDS ORDERED: SODIUM CHLORIDE 0.9% 50ML 0 ML ONE (20:43)
[2019-07-12] MEDS ORDERED: SODIUM CHLORIDE 0.9% 250ML 250 ML ONE (20:50)
[2019-07-13] VITALS (7 sets, daily range): BP systolic 130–139; BP diastolic 59–82
[2019-07-13] MEDS: LISINOPRIL 10 MG TAB PO SCH ×2 (03:05→08:47)
[2019-07-13] MEDS: METRONIDAZOLE 500MG/NS 100ML 100 ML IV SCH (05:19)
[2019-07-13] MEDS: PANTOPRAZOLE SOD 40 MG TABEC PO SCH (07:30)
--- NOTE | 2019-07-13 07:30 | NUR ---
Patient alert and responsive, received this morning and at bedside, no apparent distress, call light within reach, will monitor.
[2019-07-13] MEDS ORDERED: MAGNESIUM HYDROXIDE 30 ML UDC PO PRN (08:00)
[2019-07-13] MEDS ORDERED: BISACODYL 10 MG SUPP PR PRN (08:00)
[2019-07-13] MEDS: LACTOBACILLUS ACIDOPHILUS CAPSULE PO SCH ×2 (08:47→17:01)
[2019-07-13] MEDS: SENNOSIDES 8.6 MG TAB PO SCH ×2 (08:47→17:02)
[2019-07-13] MEDS: MEROPENEM 1GM 100 ML IV SCH ×2 (08:48→20:58)
[2019-07-13] MEDS: POTASSIUM CHLORIDE 20 MEQ TAB CR PO SCH (08:48)
[2019-07-13] MEDS: CARVEDILOL 12.5 MG TAB PO SCH ×2 (08:48→17:02)
--- NOTE | 2019-07-13 15:50 | NUR ---
Visit made by the Spiritual Care Department Pastoral Visitor, Emmanuel Silva. PV provided pastoral presence, prayer, communion, hospitality, and supportive listening. Pastoral Visitor informed pt/family of the scope of Interior Design Program Chair Services and availability. CHANTELLE TRIPP Yard Pilot Spiritual Care Department O: [phone] Pager: [phone] ([phone] number calling from)
--- NOTE | 2019-07-13 19:16 | NUR ---
PT IS RESTING IN BED WITH AT BEDSIDE. RESPIRATION IS EVEN AND UNLABORED, NO DISTRESS NOTED. BED IN THE LOWEST POSITION, LOCKED, BED ALARM ON, AND CALL LIGHT WITHIN REACH. WILL CONTINUE TO MONITOR.
[2019-07-14] VITALS (8 sets, daily range): BP systolic 126–145; BP diastolic 55–68
[2019-07-14 06:11] LABS: BASOPHILS # (AUTO) 0.1 (0.0-0.1); BASOPHILS % 0.3 % (0.0-1.0); EOSINOPHILS # (AUTO) 0.4 (0.0-0.4); EOSINOPHILS % 2.6 % (0.0-6.0); HEMATOCRIT 27.4 % (34.2-44.1); HEMOGLOBIN 9.4 g/dL (12.0-16.0); LYMPHOCYTES # (AUTO) 3.2 (1.0-3.2); LYMPHOCYTES % 21.4 % (18.0-39.1); MEAN CORPUSCULAR HEMOGLOBIN 29.8 pg (28-32); MEAN CORPUSCULAR HGB CONC 34.3 g/dL (31-35); MONOCYTES # (AUTO) 1.2 (0.2-0.8); MONOCYTES % 8.3 % (4.4-11.3); NEUTROPHILS # (AUTO) 9.7 (2.1-6.9); NEUTROPHILS % 65.4 % (38.7-80.0); PLATELET COUNT 298 x10e3/uL (140-360); RED BLOOD COUNT 3.15 x10e6/uL (3.6-5.1); RED CELL DISTRIBUTION WIDTH 14.1 % (11.7-14.4)
[2019-07-14 06:34] LABS: ANION GAP 9.2 mmol/L (8-16); BLOOD UREA NITROGEN 13 mg/dL (7-26); BUN/CREATININE RATIO 21 (6-25); CALCIUM 8.5 mg/dL (8.4-10.2); CARBON DIOXIDE 25 mmol/L (22-29); CHLORIDE 102 mmol/L (98-107); CREATININE, SERUM 0.62 mg/dL (0.57-1.11); EST GLOMERULAR FILTRATION RATE > 60 ML/MIN (60-); GLUCOSE 94 mg/dL (74-118); POTASSIUM 4.2 mmol/L (3.5-5.1); SODIUM 132 mmol/L (136-145)
[2019-07-14 07:15] LABS: PHOSPHORUS 1.9 MG/DL (2.3-4.7)
[2019-07-14 07:35] LABS: THYROID STIMULATING HORMONE 2.789 uIU/mL (0.350-4.940)
[2019-07-14] MEDS: CARVEDILOL 12.5 MG TAB PO SCH ×2 (08:23→16:20)
[2019-07-14] MEDS: MEROPENEM 1GM 100 ML IV SCH ×3 (08:23→20:23)
[2019-07-14] MEDS: PANTOPRAZOLE SOD 40 MG TABEC PO SCH (08:23)
[2019-07-14] MEDS: LISINOPRIL 10 MG TAB PO SCH (08:24)
[2019-07-14] MEDS: POTASSIUM CHLORIDE 20 MEQ TAB CR PO SCH (08:24)
[2019-07-14] MEDS: LACTOBACILLUS ACIDOPHILUS CAPSULE PO SCH ×2 (08:24→16:20)
[2019-07-14] MEDS: SENNOSIDES 8.6 MG TAB PO SCH ×2 (08:25→16:20)
[2019-07-14] MEDS ORDERED: SODIUM PHOSPHATE 3 MMOL/ML INJ IV ONE (08:45)
[2019-07-14] MEDS ORDERED: POTASSIUM CHLORIDE 20 MEQ TAB CR PO SCH (09:00)
[2019-07-14] MEDS ORDERED: SODIUM PHOSPHATE 20 MMOL in SODIUM CHLORIDE 0.9% 250ML 250 ML IV ONE (09:30)
[2019-07-14] MEDS: CYANOCOBALAMIN INJ 1,000 MCG/ML VIAL IM SCH (14:00)
--- NOTE | 2019-07-14 15:57 | Progress Note ---
DATE: SUBJECTIVE: The patient has no further arrhythmias. She is recovering well from the surgery. PHYSICAL EXAMINATION: GENERAL: The patient is aphasic. VITAL SIGNS: Stable. CARDIAC: Reveals regular rate and rhythm with normal S1 and S2. There are no murmurs or rubs. LUNGS: Auscultation of lungs reveals decreased breath sounds at the bases. ABDOMEN: Soft. There is no rebound. EXTREMITIES: Shows no leg edema or calf tenderness. IMPRESSION: 1. Ischemic bowel with recent laparotomy and partial colectomy, bowel resection. 2. Supraventricular tachycardia. 3. History of prior cerebrovascular accidents. 4. Anemia secondary to chronic blood loss. PLAN: 1. Continue current antibiotics. 2. Ativan as tolerated. 3. Restart anticoagulation when appropriate with Surgery. 4. Physical therapy. Willie Moon MD [facility]/MODL /[id number]
--- NOTE | 2019-07-14 19:00 | NUR ---
patient received lying quietly in bed. no c/o pain noted. at the bedside. respirations even and unlabored. no c/o pain or discomfort noted. dressing to abd c,d,i. pm assessment complete. patient instructed to call for assistance when needed.
[2019-07-15] VITALS (9 sets, daily range): BP systolic 114–146; BP diastolic 56–74
[2019-07-15] MEDS ORDERED: SODIUM CHLORIDE 0.9% 250ML 250 ML ONE (05:38)
--- NOTE | 2019-07-15 07:11 | NUR ---
PT ASLEEP RESP EVEN AND UNLABORED AT THIS TIME NO DISTRESS NOTED, PT EASILY AROUSED, TO NAME, NO C/O PAIN AT THIS TIME WHEN ASKED, CALL LIGHT IN REACH.
[2019-07-15] MEDS: PANTOPRAZOLE SOD 40 MG TABEC PO SCH (07:30)
[2019-07-15] MEDS: POTASSIUM CHLORIDE 10MEQ EA PO SCH (09:00)
[2019-07-15] MEDS: LISINOPRIL 10 MG TAB PO SCH (09:00)
[2019-07-15] MEDS: LACTOBACILLUS ACIDOPHILUS CAPSULE PO SCH ×2 (09:00→17:52)
[2019-07-15] MEDS: SENNOSIDES 8.6 MG TAB PO SCH ×2 (09:00→17:52)
[2019-07-15] MEDS: CYANOCOBALAMIN INJ 1,000 MCG/ML VIAL IM SCH (09:00)
[2019-07-15] MEDS: CARVEDILOL 12.5 MG TAB PO SCH ×2 (09:00→17:53)
[2019-07-15] MEDS: MEROPENEM 1GM 100 ML IV SCH ×2 (09:00→21:25)
--- NOTE | 2019-07-15 12:59 | NUR ---
orders to remove [place] form Dr. Coyle
--- NOTE | 2019-07-15 13:30 | NUR ---
snow removed at this time pt due to void. by 2129
--- NOTE | 2019-07-15 17:50 | NUR ---
pt voided and had large BM.
--- NOTE | 2019-07-15 19:15 | NUR ---
RECEIVED REPORT FROM PREVIOUS NURSE. CALL LIGHT WITHIN REACH. PATIENT IN BED. AT BEDSIDE
[2019-07-16 05:11] VITALS: BP 136/64
--- NOTE | 2019-07-16 07:00 | NUR ---
PATIENT IS ALERT TO SELF AND IS IN STABLE CONDITION WITH NO S/S OF RESPIRATORY DISTRESS. NO PAIN INDICATED. TELEMETRY APPLIED. PRESENT IN ROOM. BED ALARM ON. CALL LIGHT IS WITHIN REACH, PATIENT INSTRUCTED TO CALL FOR ASSISTANCE NEEDED.
--- NOTE | 2019-07-16 07:12 | NUR ---
Gave report to oncoming nurse. Call light within reach. Patient in bed. at bedside
[2019-07-16 08:00] VITALS: BP 146/66
[2019-07-16] MEDS: MEROPENEM 1GM 100 ML IV SCH (08:17)
[2019-07-16] MEDS: CYANOCOBALAMIN INJ 1,000 MCG/ML VIAL IM SCH (08:17)
[2019-07-16] MEDS: PANTOPRAZOLE SOD 40 MG TABEC PO SCH (08:20)
[2019-07-16] MEDS: CARVEDILOL 12.5 MG TAB PO SCH (08:21)
[2019-07-16] MEDS: LISINOPRIL 10 MG TAB PO SCH (08:22)
[2019-07-16] MEDS: POTASSIUM CHLORIDE 10MEQ EA PO SCH (08:22)
[2019-07-16] MEDS: LACTOBACILLUS ACIDOPHILUS CAPSULE PO SCH (08:22)
[2019-07-16] MEDS: SENNOSIDES 8.6 MG TAB PO SCH (08:22)
[2019-07-16 10:11] VITALS: BP 146/66
--- NOTE | 2019-07-16 10:29 | NUR ---
CALL PLACED OUT TO DR. MARTINEZ REGARDING DISCHARGE CLEARANCE AND DRESSING INQUIRY- AWAITING CALLBACK.
[2019-07-16 11:54] VITALS: BP 130/62
--- NOTE | 2019-07-16 12:17 | NUR ---
ORDER RECEIVED FOR HOME HEALTH FOR SN/PT/OT EVAL AND TREAT. MET W THE PT AND SPOUSE AT THE BEDSIDE TO DISCUSS CHOICE. STATES FIND AN AGENCY IN NETWORK. STATES HE CAN DO HER PHYSICAL THERAPY. DISCUSSED HOW PT WILL ASSESS ONLY AND MAKE RECOMMENDATIONS TO THE DOC. VERBALIZED UNDERSTANDING. CHOICE LETTER WAS SIGNED. COPY TO SPOUSE AND COPY TO THE CHART. REFERRAL WAS FAXED TO [facility] @ OFF: [phone] / FAX: [phone]. IMM LETTER EXPLAINED TO PT. PT VERBALIZED UNDERSTANDING. IMM LETTER SIGNED. COPY TO PT AND COPY TO CHART.
--- NOTE | 2019-07-16 13:34 | NUR ---
PATIENT DISCHARGE HOME- PATIENT OFF THE UNIT AT 1230 PER WHEELCHAIR ACCOMPANIED BY RN TO THE PATIENT'S PERSONAL VEHICLE. PATIENT IS IN STABLE CONDITION WITH NO S/S OF RESPIRATORY DISTRESS. NO PAIN VOICED. IV REMOVED WITH TIP INTACT. DISCHARGE TEACHING, INSTRUCTIONS, AND MEDICATIONS GIVEN TO THE PATIENT AND HER . ALL PERSONAL ITEMS WERE TAKEN BY THE PATIENT'S .
--- NOTE | 2019-07-16 13:36 | NUR ---
DRESSING TO RIGHT GROIN REMOVED. DRESSING TO MID-ABD WOUND IS DRY AND INTACT- PATIENT AND ARE AWARE THE DRESSING MAY BE REMOVED AND LEFT OPEN TO AIR. DIAPER APPLIED TO PATIENT.
--- NOTE | 2019-07-16 18:46 | Discharge Summary ---
PRIMARY CARE PHYSICIAN: Dr. Yousuf Perez. CONSULTANTS: 1. Dr. Willie Moon. 2. Dr. Yuri Moon. 3. Dr. Yuri Coyle. 4. Dr. Gigi Browning. FINAL DIAGNOSES: 1. 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 2. Status post exploratory laparotomy, small bowel resection, and lysis of adhesion procedure was done by Dr. Yuri Coyle on July 09, 2019. 3. Paroxysmal atrial fibrillation, was on warfarin. 4. Severe coagulopathy. 5. Baseline cerebrovascular accident, aphasia, and left-sided paralysis. SUMMARY: The patient is a 79-year-old female, came in with urinary tract infection, but more importantly, the patient with septic peritonitis. The patient with acute renal failure. She has a small bowel volvulus with obstruction. The patient had a small bowel of small segment resection with a direct anastomosis. She has also had lysis of adhesion as well. The patient was septic in the ICU. The patient continues with antibiotic, meropenem. She is doing much better now. The small area incision wound healing well. When she presented to the hospital, her INR was undetected due to significantly elevated. The patient is given FFP and also blood because of acute blood loss anemia. The patient did well. She reversed with FFP, packed red blood cell. The patient has paroxysmal atrial fibrillation. She is doing much better now. She is stable. Vital signs stable. The patient will go home with home health. She will discontinue the alendronate, Norvasc, Lipitor, Coreg 25 mg, Lasix 40 mg, losartan 25 mg, potassium, and warfarin for now. She will continue with Tessalon Perles as needed, lisinopril 20 mg daily, and omeprazole 40 mg daily. New prescription, she will take Eliquis 2.5 mg twice a day for paroxysmal atrial fibrillation that causing her stroke. Vancomycin 125 mg t.i.d. p.o. because she is starting to have diarrhea. Questran 1 package q.6 hours as needed for diarrhea. Coreg 12.5 mg twice a day, B12 1000 mcg sublingual daily, folic acid 1 mg daily, Bacid 1 capsule b.i.d., Zofran ODT 4 mg sublingual q.4 p.r.n. for nausea and vomiting, and Tylenol No. 3 p.r.n. for pain. The patient to follow up with Dr. Yuri Coyle and Dr. Gigi Browning within 1 to 2 weeks. She will follow up with Dr. Yousuf Perez within a week for her medication reconciliation. The patient is otherwise stable, discharged home today with home health. MD MARTI Dominguez/DAVID /[id number]
== END 2019-07-16 12:30 | disposition home health service (06) | DRG 853 ==
LOC: ER 09:43 → ERHOLD 13:23 → ICU 14:11 → MED/SURG3 07-12 18:14
PROVIDERS: ADMIT Internal Medicine; ATTEND Internal Medicine
PROC: 30233K1 Transfusion of Nonautologous Frozen Plasma into Peripheral Vein, Percutaneous Approach (ICD-10-PCS; 2019-07-09)
PROC: 30233N1 Transfusion of Nonautologous Red Blood Cells into Peripheral Vein, Percutaneous Approach (ICD-10-PCS; 2019-07-09)
PROC: 02HV33Z Insertion of Infusion Device into Superior Vena Cava, Percutaneous Approach (ICD-10-PCS; 2019-07-09)
PROC: B548ZZA Ultrasonography of Superior Vena Cava, Guidance (ICD-10-PCS; 2019-07-09)
PROC: 0DB80ZZ Excision of Small Intestine, Open Approach (ICD-10-PCS; principal; 2019-07-09 14:00)
DX: A41.9 Sepsis, unspecified organism (principal); K56.2 Volvulus; K63.1 Perforation of intestine (nontraumatic); K65.8 Other peritonitis; N17.9 Acute kidney failure, unspecified; K92.2 Gastrointestinal hemorrhage, unspecified; N39.0 Urinary tract infection, site not specified; I47.1 Supraventricular tachycardia; K56.51 Intestinal adhesions [bands], with partial obstruction; I69.354 Hemiplegia and hemiparesis following cerebral infarction affecting left non-dominant side; D62 Acute posthemorrhagic anemia; I48.0 Paroxysmal atrial fibrillation; Z79.01 Long term (current) use of anticoagulants; I10 Essential (primary) hypertension; T45.515A Adverse effect of anticoagulants, initial encounter; Z87.440 Personal history of urinary (tract) infections; E78.5 Hyperlipidemia, unspecified; Z82.49 Family history of ischemic heart disease and other diseases of the circulatory system; R65.20 Severe sepsis without septic shock; K52.9 Noninfective gastroenteritis and colitis, unspecified; E87.6 Hypokalemia; I69.320 Aphasia following cerebral infarction
CPT/HCPCS: 36415; 36555; 51700; 70450; 71045; 72125; 72170; 74176; 80048; 80053; 81001; 82270; 82550; 82553; 82607; 82948; 83605; 83735; 83880; 84100; 84443; 84484; 85014; 85018; 85025; 85610; 85730; 86850; 86900; 86920; 87040; 87086; 87186; 88307; 93005; 93306; 97139; 99285; J0153; J1940; J2001; J2185; J2270; J2405; J3010; J3420; J3430; J3480; J7030; J7050; P9016; P9017

== ENCOUNTER 2020-05-21 03:59 | Emergency (ER) | payer MEDICARE, OTHER ==
[~2020-05-21] VITALS: Ht 152.4 cm; Wt 73.5 kg
[~2020-05-21 03:59] MED LIST: ALENDRONATE SOD70 MG; AMLODIPINE BESY10 MG; ATORVASTATIN CA80 MG; BENZONATATE100 MG; CARVEDILOL25 MG; FUROSEMIDE40 MG; K DUR10 MEQ; LISINOPRIL20 MG; LOSARTAN POTASS25 MG; OMEPRAZOLE40 MG; WARFARIN SODIUM5 MG
[2020-05-21] MEDS ORDERED: SODIUM CHLORIDE 0.9% 500ML 500 ML IV STA (04:16)
--- NOTE | 2020-05-21 04:16 | Emergency Department Note ---
History of Present Illnes History of Present Illness Chief Complaint: General Medicine Complaints History of Present Illness This is a 80 year old female . Historian: Patient Arrival Mode: Car Duration (how long): day(s) (BERNICE PRUITT DO) Past Medical/Family History Physician Review I have reviewed the patient's past medical and family history. Any updates have been documented here. (BERNICE PRUITT DO) Past Medical History Past Medical History: Hypertension, CVA, A-Fib, Hyperlipedemia Other Medical History: [place] 3 STROKES Past Surgical History: Hysterectomy (BERNICE PRUITT DO) Other Last Tetanus: UNK (BERNICE PRUITT DO) Physical Exam Related Data Allergies: Coded Allergies: No Known Allergies (Unverified , 07/09/19) Physical Exam CONSTITUTIONAL Constitutional: Present well-developed, Present well-nourished HENT HENT: Present normocephalic, Present atraumatic, Present oropharynx clear/moist, Present nose normal HENT L/R: Present left ext ear normal, Present right ext ear normal EYES Eyes: Reports PERRL, Reports conjunctivae normal NECK Neck: Present ROM normal PULMONARY Pulmonary: Present effort normal, Present breath sounds normal CARDIOVASCULAR Cardiovascular: Present regular rhythm, Present heart sounds normal, Present capillary refill normal, Present normal rate GASTROINTESTINAL Abdominal: Present soft, Present nontender, Present bowel sounds normal, Present tender (suprapubic) GENITOURINARY Genitourinary: Present exam deferred SKIN Skin: Present warm, Present dry MUSCULOSKELETAL Musculoskeletal: Present ROM normal NEUROLOGICAL Neurological: Present alert, Present oriented x 3, Present no gross motor or sensory deficits PSYCHOLOGICAL Psychological: Present mood/affect normal, Present judgement normal (BERNICE PRUITT DO) Results Imaging Imaging results reviewed: Yes (DELMIS HENDRIX MD) Assessment & Plan Medical Decision Making MDM per Dr Pruitt - cbc, chem, lipase, UA, CT a/p - r/o UTI, diverticulitis, colitis, pelvic pathology. Pt already on abx's for UTI (DELMIS HENDRIX MD) Reassessment Reassessment dc home, continue Augmentin, Pyridium UD, F/U PCP (DELMIS HENDRIX MD) Assessment & Plan Final Impression: (1) UTI (urinary tract infection) (DELMIS HENDRIX MD) Depart Disposition: HOME, SELF-halfway Meds Reported Medications Benzonatate (BENZONATATE) 100 Mg Capsule 07/09/19 Lisinopril (PRINAVIL / ZESTRIL) 20 Mg Tablet 07/09/19 Omeprazole (OMEPRAZOLE) 40 Mg Capsule. 07/09/19 BERNICE PRUITT DO May 21, 2020 04:16 DELMIS HENDRIX MD May 21, 2020 06:48
[2020-05-21 04:24] LABS: BASOPHILS # (AUTO) 0.1 (0.0-0.1); BASOPHILS % 0.7 % (0.0-1.0); EOSINOPHILS # (AUTO) 0.2 (0.0-0.4); HEMATOCRIT 42.6 % (34.2-44.1); LYMPHOCYTES # (AUTO) 2.8 (1.0-3.2); MEAN CORPUSCULAR HEMOGLOBIN 28.9 pg (28-32); MEAN CORPUSCULAR HGB CONC 32.9 g/dL (31-35); MONOCYTES # (AUTO) 0.7 (0.2-0.8); MONOCYTES % 7.4 % (4.4-11.3); NEUTROPHILS # (AUTO) 5.1 (2.1-6.9); NEUTROPHILS % 57.3 % (38.7-80.0); PLATELET COUNT 316 x10e3/uL (140-360); RED BLOOD COUNT 4.84 x10e6/uL (3.6-5.1); RED CELL DISTRIBUTION WIDTH 13.9 % (11.7-14.4)
[2020-05-21 04:47] LABS: ALANINE AMINOTRANSFERASE 11 IU/L (0-55); ALBUMIN 4.2 g/dL (3.5-5.0); ALKALINE PHOSPHATASE 110 IU/L (40-150); ANION GAP 14.2 mmol/L (8-16); BLOOD UREA NITROGEN 11 mg/dL (7-26); BUN/CREATININE RATIO 13 (6-25); CALCIUM 8.8 mg/dL (8.4-10.2); CARBON DIOXIDE 23 mmol/L (22-29); CHLORIDE 103 mmol/L (98-107); CREATININE, SERUM 0.88 mg/dL (0.57-1.11); EST GLOMERULAR FILTRATION RATE > 60 ML/MIN (60-); GLUCOSE 134 mg/dL (74-118); LIPASE 29 U/L (8-78); POTASSIUM 4.2 mmol/L (3.5-5.1); SODIUM 136 mmol/L (136-145)
[2020-05-21] MEDS ORDERED: IOPAMIDOL 370 MG/ML 200 ML INFUS..BTL INJ ONE (05:28)
[2020-05-21] MEDS ORDERED: SODIUM CHLORIDE 0.9% 50ML 50 ML ONE (05:29)
[2020-05-21 05:38] LABS: BILIRUBIN,URINE NEGATIVE (NEGATIVE); CLARITY,URINE CLEAR (CLEAR); COLOR,URINE YELLOW (YELLOW); KETONES,URINE NEGATIVE (NEGATIVE); LEUKOCYTE ESTERASE ,URINE NEGATIVE (NEGATIVE); NITRITE,URINE NEGATIVE (NEGATIVE); PROTEIN,URINE DIPSTICK NEGATIVE (NEGATIVE); URINE UROBILINOGEN 1 mg/dL (0.2 - 1)
[2020-05-21 05:39] LABS: BACTERIA,URINE FEW /HPF; RBC,URINE 0-5 /HPF (0-5)
[2020-05-21 05:40] LABS: MUCUS,URINE FEW (RARE)
[2020-05-21] MEDS ORDERED: MORPHINE SULFATE INJ 4 MG/ML INJ 1ML IV STA (05:48)
--- NOTE | 2020-05-21 06:29 | Diagnostic Imaging Report ---
EXAM: CT Abdomen and Pelvis WITH contrast INDICATION: ^suprapubic pain COMPARISON: CT dated 07/09/2019 TECHNIQUE: Abdomen and pelvis were scanned utilizing a multidetector helical scanner from the lung base to the pubic symphysis after administration of IV contrast. Coronal and sagittal reformations were obtained. Dose modulation, iterative reconstruction, and/or weight based adjustment of the mA/kV was utilized to reduce the radiation dose to as low as reasonably achievable. Routine protocol was performed. Scan was performed when during portal venous phase. IV CONTRAST: 100 mL of Isovue-370 ORAL CONTRAST: None COMPLICATIONS: None RADIATION DOSE: Total DLP: 542.16 mGy*cm Estimated effective dose: (DLP x 0.015 x size factor) mSv CTDIvol has been reviewed. It is below the limits set by the Radiation Protocol Committee (RPC). FINDINGS: LINES and TUBES: None. LOWER THORAX: Bibasilar subsegmental atelectasis. HEPATOBILIARY: No focal hepatic lesions. No biliary ductal dilation. GALLBLADDER: No radio-opaque stones or sludge. No wall thickening. SPLEEN: No splenomegaly. PANCREAS: No focal masses or ductal dilatation. ADRENALS: No adrenal nodules KIDNEYS/URETERS: Kidneys enhance symmetrically. No hydronephrosis. No cystic or solid mass lesions. No stones. GI TRACT: No abnormal distention, wall thickening, or evidence of bowel obstruction. Third portion duodenal diverticulum. Appendix is normal. Moderate size hiatal hernia. Colonic diverticulosis without evidence of diverticulitis. Right pelvic bowel anastomosis. PELVIC ORGANS/BLADDER: Unremarkable. LYMPH NODES: No lymphadenopathy. VESSELS: Unremarkable. PERITONEUM / RETROPERITONEUM: No free air or fluid. BONES: Degenerative changes of spine mild lumbar spine scoliosis. Grade 1 anterolisthesis of L4 in relation to L5. Unchanged L1 vertebral body lucency, likely a hemangioma. SOFT TISSUES: Unremarkable. IMPRESSION: No acute infarct or processing abdomen/pelvis. Moderate size hiatal hernia. Colonic diverticulosis without evidence of diverticulitis. Signed by: Dr. James Guerra MD on 05/21/2020 6:26 AM
[2020-05-21 06:53] VITALS: BP 126/66
--- OUTSIDE RECORDS SUMMARY | 2020-05-23 16:06 | XMS REPORT | Clinical Summary ---
Author Author [facility] Organization [facility] Address Unknown Phone Unavailable Care Team Providers Care Remelt Furnace Expediter Name Role Phone Marvin Natarajan MD PCP [phone] Allergies Comments Active Allergy Reactions Severity Noted Date Penicillins 05/19/2018 Medications End Date Status Medication Sig Dispensed Refills Start Date Active alendronate (FOSAMAX) 70 Take 70 mg by 0 04/01 / MG tablet mouth once a 8 week. On Sunday Active lisinopril Take 1 tablet 0 (PRINIVIL,ZESTRIL) 30 mg by mouth 2 8 tablet (two) times a day. Active niacin (NIASPAN) 500 MG Take 1 tablet 0 CR tablet by mouth 8 nightly. Active omeprazole (PriLOSEC) 40 Take 1 0 03/19 MG capsule capsule by 8 mouth daily. Active calcium carbonate-vitamin Take 1 tablet 0 D3 500 mg-200 unit per by mouth 3 tablet (three) times a day with meals. 05/24/2019 carvedilol (COREG) 25 MG Take 1 tablet 60 tablet 11 tablet (25 mg total) 8 by mouth 2 (two) times a day. 05/24/2019 atorvastatin (LIPITOR) 80 Take 1 tablet 30 tablet 11 MG tablet (80 mg total) 8 by mouth nightly. 05/25/2019 amLODIPine (NORVASC) 10 Take 1 tablet 30 tablet 11 mg tablet (10 mg total) 8 by mouth daily. Active Problems Problem Noted Date Acute CVA (cerebrovascular accident) 05/19/2018 Family History Medical History Relation Name Comments Heart disease Brother Diabetes Father Heart disease Father Relation Name Status Comments Brother Father Social History Date Tobacco Use Types Packs/Day Years Used Never Smoker Smokeless Tobacco: Never Used Drinks/Week oz/Week Comments Alcohol Use No Sex Assigned at Date Recorded Not on file Last Filed Vital Signs Not on file Plan of Treatment Health Maintenance Due Date Last Done Comments SHINGLES VACCINES (#1) 01/17/1992 65+ PNEUMOCOCCAL VACCINE 2007 (1 of 1 - PPSV23) INFLUENZA VACCINE 03/27/2020 Results Not on fileafter 05/21/2019 Insurance Type Payer Benefit Subscriber ID Effective Phone Address Plan / Dates Group HMO [employer] [id number] ([place] [place] [address] Advance Directives For more information, please contact: [phone] Patient Scenic Designer Explanation Type Date Recorded Advance Directives, 05/19/2018 10:19 PM Living Will and Medical Power of Information Systems Professor
--- OUTSIDE RECORDS SUMMARY | 2020-05-23 16:07 | XMS REPORT | Continuity of Care Document ---
Author Author [facility] t Organization [facility] Address [address] [place] [address] Phone Unavailable Care Team Providers Care Manager Of Financial Name Role Phone SYDNEY SIMONS, MD NOVA PCP Miguel STEVEN Attphys Unavailable PRUITT, LAURA Attphys Unavailable PRUITT, LAURA Admphys Unavailable Payers Payer Name Policy Type Policy Number Effective Date Expiration Date [employer]en [employer] [id number] 2019 00:00:00 [facility] [id number] 2018 00:00:00 [facility] Problems Condition Name Condition Details Condition Category Status Onset Date Resolution Date Last Treatment Date Treating Clinician Comments Source Acute CVA (cerebrovascular accident) Acute CVA (cerebrovascu lar accident) Disease Active 2018-05-19 00:00:00 Connor Lambert Coagulation disorder Coagulopathy Problem Active [facility] Vascular insufficiency of intestine Ischemia, bowel Problem Active [facility] Torsion of ovary Ovarian torsion Problem Active [facility] Renal insufficiency Renal insufficiency Problem Active [facility] Sepsis Sepsis Problem Active [facility] Perforation of small intestine Small bowel perforation Problem Active [facility] Urinary tract infection UTI (urinary tract infection) Problem Active [facility] Allergies, Adverse Reactions, Alerts Allergy Name Allergy Type Status Severity Reaction(s) Onset Date Inacti ve Date Treating Clinician Comments Source Penicillins DA Active U 2018-06-16 00:00:00 [facility] Penicillins Propensity to adverse reactions to drug Active 2018-05-19 00:00:00 Connor gregory No Known Allergies DA Active U 2018-05-17 00:00:00 [facility] No Known Drug Intolerances DA Active U 2009-08-08 00:00:0 0 [facility] No Known Intolerances DA Active U 2009-08-08 00:00:00 [facility] Family History Family Member Diagnosis Comments Start Date Stop Date Source Natural brother Heart disease Faye Lambert Natural father Diabetes Connor Jackson thodist Natural father Heart disease Connor Lambert Social History Social Habit Start Date Stop Date Quantity Comments Source Sex Assigned At Tomas valenciabandar Lambert Tobacco use and exposure 2018-05-20 00:00:00 2018-05-20 00:00:00 Monica pablo used Connor Lambert Alcohol intake 2018-05-20 00:00:00 2018-05-20 00:00:00 Current non-drinker of alcohol (finding) Connor Lambert Smoking Status Start Date Stop Date Source Never smoker Connor gregory Medications Ordered Medication Name Filled Medication Name Start Date Stop Da te Current Medication? Ordering Clinician Indication Dosage Frequency Signature (SIG) Comments Components Source amLODIPine (NORVASC) 10 mg tablet 2018-05-25 00:00:00 2018 23:59:00 No 10mg QD Take 1 tablet (10 mg total) by mouth juanpablo lyThea Lambert calcium carbonate-vitamin D3 500 mg-200 unit per tablet 2018-05-24 19:19:25 Yes 1{tbl} Q.[id number] Take 1 tablet by mouth 3 (three) times a day with meals. Connor Lambert carvedilol (COREG) 25 MG tablet 2018-05-24 00:00:00 23:59:00 No 25mg Q.5D Take 1 tablet (25 mg total) by mouth 2 (two) ti mes a day. Connor Lambert atorvastatin (LIPITOR) 80 MG tablet 2018-05-24 00:00:0 0 2019-05-24 23:59:00 No 80mg QD Take 1 tablet (80 mg total) by mouth nig htly. Ryan Petra niacin (NIASPAN) 500 MG CR tablet 2018-05-01 00:00:00 Yes 1{tbl} QD Take 1 tablet by mouth nightly. Ryan Tiffanie villalobos alendronate (FOSAMAX) 70 MG tablet 2018-04-01 00:00:00 Yes 70mg Q7D Take 70 mg by mouth once a week. On Sunday Hamilton miller Petra lisinopril (PRINIVIL,ZESTRIL) 30 mg tablet 2018-04-01 00:00:00 Yes 1{tbl} Q.5D Take 1 tablet by mouth 2 (two) times a day. Connor Lambert omeprazole (PriLOSEC) 40 MG capsule 2018-03-19 00:00:00 Yes 1{capsule} QD Take 1 capsule by mouth daily. Rick Lambert Benzonatate Benzonatate Yes [facility] Lisinopril (Prinavil / Zestril) 20 Mg TABLET Lisinopri l (Prinavil / Zestril) [address] [facility] Omeprazole Omeprazole Yes [facility] Alendronate Sodium Alendronate Sodium 2019-07-16 00:00:00 [facility] Amlodipine Besylate Amlodipine Besylate 2019-07-16 00:00:00 [facility] Atorvastatin Calcium Atorvastatin Calcium 2019-07-16 00:00:00 [facility] Carvedilol Carvedilol 2019-07-16 00:00:00 [facility] Furosemide Furosemide 2019-07-16 00:00:00 [facility] Losartan Potassium Losartan Potassium 2019-07-16 00:00:00 [facility] Potassium Chloride (K Dur*) 10 Meq TABCR Potassium Chl oride (K Dur*) 10 Meq TABCR 2019-07-16 00:00:00 [facility] Warfarin Sodium (Coumadin) 5 Mg TABLET Warfarin Sodium (Coumadin ) 5 Mg TABLET 2019-07-16 00:00:00 No [facility] Vital Signs Vital Name Observation Time Observation Value Comments Source Body Temperature 2020-05-21 06:53:00 98.0 [degF] [facility] Weight 2020-05-21 04:12:00 162 [lb_av] [facility] BMI (Body Mass Index) 2020-05-21 04:12:00 31.6 kg/m2 [facility] Procedures Procedure Date / Time Performed Performing Clinician [facility] e Computed tomography of abdomen and pelvis with contrast 00:00:00 [facility] Plan of Care Planned Activity Planned Date Details Comments Source Future Scheduled Test 2020-03-27 00:00:00 INFLUENZA VACCINE [code = INFLUENZA VACCINE] [facility] Scheduled Test 2007 00:00:00 65+ PNEUMOCOCCAL V ACCINE (1 of 1 - PPSV23) [code = 65+ PNEUMOCOCCAL VACCINE (1 of - PPSV23)] [facility] Scheduled Test 1992-01-17 00:00:00 SHINGLES VACCINES (#1) [code = SHINGLES VACCINES (#1)] [facility] Instructions Urinary Tract Infection - Women [facility] Encounters Start Date/Time End Date/Time [facility] ID Source 2019-07-09 13:23:00 2019-07-16 12:30:00 Discharged Inpatient 1 LAURA PRUITT [facility] [id number] [facility] Results Test Description Test Time Test Comments Results Result Comments Source CT ABDOMEN/PELVIS W 2020-05-21 06:16:00 [place] [address] Patient Name: BUBBA LY MR #: [id number] : 1940 Age/Sex: 80/F Req #: [id number] Adm Physician: Ordered by: BERNICE PRUITT DO Report #: [id number] Location: ER Room/Bed: Procedure: [id number] CT/CT ABDOMEN/PELVIS W Exam Date: 05/21/20 Exam Time: 726 REPORT STATUS: Signed EXAM: CT Abdomen and Pelvis WITH contrast INDICATION: suprapubic pain COMPARISON: CT dated 07/09/2019 TECHNIQUE: Abdomen and pelvis were scanned utilizing a multidetector helical scanner from the lung base to the pubic symphysis after administration of IV contrast. Coronal and sagittal reformations were obtained. Dose modulation, iterative reconstruction, and/or weight based adjustment of the mA/kV was utilized to reduce the radiation dose to as low as reasonably achievable. Routine protocol was performed. Scan was performed when during portal venous phase. IV CONTRAST: 100 mL of Isovue-370 ORAL CONTRAST: None COMPLICATIONS: None RADIATION DOSE: Total DLP: 542.16 mGy*cm Estimated effective dose: (DLP x 0.015 x size factor) mSv CTDIvol has been reviewed. It is below the limits set by the Radiation Protocol Committee (RPC). FINDINGS: LINES and TUBES: None. LOWER THORAX: Bibasilar subsegmental atelectasis. HEPATOBILIARY: No focal hepatic lesions. No biliary ductal dilation. GALLBLADDER: No radio-opaque stones or sludge. No wall thickening. SPLEEN: No splenomegaly. PANCREAS: No focal masses or ductal dilatation. ADRENALS: No adrenal nodules KIDNEYS/URETERS: Kidneys enhance symmetrically. No hydronephrosis. No cystic or solid mass lesions. No stones. GI TRACT: No abnormal distention, wall thickening, or evidence of bowel obstruction. Third portion duodenal diverticulum. Appendix is normal. Moderate size hiatal hernia. Colonic diverticulosis without evidence of diverticulitis. Right pelvic bowel anastomosis. PELVIC ORGANS/BLADDER: Unremarkable. LYMPH NODES: No lymphadenopathy. VESSELS: Unremarkable. PERITONEUM / RETROPERITONEUM: No free air or fluid. BONES: Degenerative changes of spine mild lumbar spine scoliosis. Grade 1 anterolisthesis of L4 in relation to L5. Unchanged L1 vertebral body lucency, likely a hemangioma. SOFT TISSUES: Unremarkable. IMPRESSION: No acute infarct or processing abdomen/pelvis. Moderate size hiatal hernia. Colonic diverticulosis without evidence of diverticulitis. Signed by: Dr. James Thomas MD on 05/21/2020 6:26 AM Dictated By: JAMES THOMAS MD 5 Transcribed By: EMMA on 05/21/20625 COPY TO: BERNICE PRUITT DO Urine color determination 2020-05-21 04:25:00 Test Item Urine Color (test code = 5778-6) YELLOW YELLOW [facility] qqkmphy2001-72-26 04:25:00* Test Item Value Reference Range Interpretation Comments Urine Clarity (test code = 47904-6) [facility] Test strip 2020-05-21 04:25:00* Test Item Value Reference Range Interpretation Comments Urine Specific [place] (test code = 5811-5) 1.015 1.010-1.02 5 [facility] pH measurement by automated test cbnok7407-09-25 04:25:00* Test Item Value Reference Range Interpretation Comments Urine pH (test code = 40564-8) 5.5 5-7 [facility] leukocyte esterase detection by bohkoocz1755-21-74 04:25:00* Test Item Value Reference Range Interpretation Comments Urine Leukocyte Esterase (test code = 5799-2) NEGATIVE NEGATIVE [facility] Hospital[facility] nitrite wrkbelysb1564-35-27 04:25:00* Test Item Value Reference Range Interpretation Comments Urine Nitrite (test code = 12638-1) NEGATIVE NEGATIVE [facility] protein measurement by test strip (mass/volume)2020-05-21 04:25:00* Test Item Value Reference Range Interpretation Comments Urine Protein (test code = 5804-0) NEGATIVE NEGATIVE [facility] Hospital[facility] glucose gkxlfcaft5339-19-16 04:25:00* Test Item Value Reference Range Interpretation Comments Urine Glucose (UA) (test code = 2349-9) NEGATIVE NEGATIVE [facility] Hospital[facility] ketones detection by automated test [id number] 04:25:00* Test Item Value Reference Range Interpretation Comments Urine Ketones (test code = 37171-7) NEGATIVE NEGATIVE [facility] Hospital[facility]rine urobilinogen measurement by test strip (mass/volume)2020-05-21 04:25:00* Test Item Value Reference Range Interpretation Comments Urine Urobilinogen (test code = 33389-4) 1 0.2-1 [facility] total bilirubin measurement (mass/volume)2020-05-21 04:25:00* Test Item Value Reference Range Interpretation Comments Urine Bilirubin (test code = 1978-6) NEGATIVE NEGATIVE [facility] Hospital[facility] erythrocytes gmjvjwima8581-83-43 04:25:00* Test Item Value Reference Range Interpretation Comments Urine Blood (test code = 57981-0) NEGATIVE NEGATIVE [facility] HospitalAutomated urine sediment leukocyte count by microscopy (number/high power field)2020-05-21 04:25:00* Test Item Value Reference Range Interpretation Comments Urine WBC (test code = 5821-4) 11-20 0-5 [facility] HospitalErythrocytes detection in urine sediment by light anudkyxxlu8156-51-64 04:25:00* Test Item Value Reference Range Interpretation Comments Urine RBC (test code = 86656-8) 0-5 0-5 [facility] HospitalBacteria detection in urine sediment by light zbvwtcfarb2019-13-42 04:25:00* Test Item Value Reference Range Interpretation Comments Urine Bacteria (test code = 21471-4) FEW NONE [facility] HospitalEpithelial cells detection in urine sediment by light tdbrqvdjxn3813-33-03 04:25:00* Test Item Value Reference Range Interpretation Comments Urine Epithelial Cells (test code = 93166-1) NONE NONE [facility] HospitalMucus detection in urine sediment by light cpgapvyvmk2906-13-09 04:25:00* Test Item Value Reference Range Interpretation Comments Urine Mucus (test code = 8247-9) FEW RARE [facility] HospitalBlood leukocytes automated count (number/volume)2020-05-21 04:18:00* Test Item Value Reference Range Interpretation Comments White Blood Count (test code = 6690-2) 8.87 4.8-10.8 [facility] HospitalBlood erythrocytes automated count (number/volume)2020-05-21 04:18:00* Test Item Value Reference Range Interpretation Comments Red Blood Count (test code = 789-8) 4.84 3.6-5.1 [facility] HospitalBlood hemoglobin measurement (moles/volume)2020-05-21 04:18:00* Test Item Value Reference Range Interpretation Comments Hemoglobin (test code = 07899-7) 14.0 12.0-16.0 [facility] HospitalAutomated blood hematocrit (volume fraction)2020-05-21 04:18:00* Test Item Value Reference Range Interpretation Comments Hematocrit (test code = 4544-3) 42.6 34.2-44.1 [facility] HospitalAutomated erythrocyte mean corpuscular fbewgl3897-99-12 04:18:00* Test Item Value Reference Range Interpretation Comments Mean Corpuscular Volume (test code = 787-2) 88.0 81-99 [facility] HospitalAutomated erythrocyte mean corpuscular hemoglobin (mass per erythrocyte)2020-05-21 04:18:00* Test Item Value Reference Range Interpretation Comments Mean Corpuscular Hemoglobin (test code = 785-6) 28.9 28-32 [facility] HospitalAutomated erythrocyte mean corpuscular hemoglobin concentration measurement (mass/volume)2020-05-21 04:18:00* Test Item Value Reference Range Interpretation Comments Mean Corpuscular Hemoglobin Concent (test code = 786-4) 32.9 31-35 [facility] HospitalRDW YsaEz-Vlg8821-52-25 04:18:00* Test Item Value Reference Range Interpretation Comments Red Cell Distribution Width (test code = 50765-2) 13.9 11.7 -14.4 [facility] HospitalAutomated blood platelet count (count/volume)2020-05-21 04:18:00* Test Item Value Reference Range Interpretation Comments Platelet Count (test code = 777-3) 316 140-360 [facility] HospitalAutomated blood segmented neutrophil count as percentage of total gajwgnuwll2430-87-04 04:18:00* Test Item Value Reference Range Interpretation Comments Neutrophils (%) (Auto) (test code = 95860-8) 57.3 38.7-80.0 [facility] HospitalAutomated blood lymphocyte count as percentage ot total ojjgwcjjku5613-77-93 04:18:00* Test Item Value Reference Range Interpretation Comments Lymphocytes (%) (Auto) (test code = 736-9) 32.0 18.0-39.1 [facility] HospitalAutomated blood monocyte count as percentage of total ecrnfrhfvm6019-10-06 04:18:00* Test Item Value Reference Range Interpretation Comments Monocytes (%) (Auto) (test code = 5905-5) 7.4 4.4-11.3 [facility] HospitalAutunc health pardeeed blood eosinophil count as percentage of total bxcrnxbilo9311-74-70 04:18:00* Test Item Value Reference Range Interpretation Comments Eosinophils (%) (Auto) (test code = 713-8) 2.0 0.0-6.0 [facility] HospitalAutomated blood basophil count as percentage of total fyprgxfaeq1470-24-92 04:18:00* Test Item Value Reference Range Interpretation Comments Basophils (%) (Auto) (test code = 706-2) 0.7 0.0-1.0 [facility] HospitalFluoroscopic procedure less than one hour wzpunhpt1198-19-74 04:18:00* Test Item Value Reference Range Interpretation Comments IM GRANULOCYTES % (test code = IM GRANULOCYTES %) 0.6 0.0- 1.0 [facility] HospitalAutomated blood neutrophil count 2020-05-21 04:18:00* Test Item Value Reference Range Interpretation Comments Neutrophils # (Auto) (test code = 751-8) 5.1 2.1-6.9 [facility] HospitalBlood lymphocytes count (number/volume) 2020-05-21 04:18:00* Test Item Value Reference Range Interpretation Comments Lymphocytes # (Auto) (test code = 35436-9) 2.8 1.0-3.[address] [facility] monocytes automated count (number/volume)2020-05-21 04:18:00* Test Item Value Reference Range Interpretation Comments Monocytes # (Auto) (test code = 742-7) 0.7 0.2-0.8 [facility] HospitalAutomated blood eosinophil count 2020-05-21 04:18:00* Test Item Value Reference Range Interpretation Comments Eosinophils # (Auto) (test code = 711-2) 0.2 0.0-0.4 [facility] HospitalAutomated blood basophil count (count/volume)2020-05-21 04:18:00* Test Item Value Reference Range Interpretation Comments Basophils # (Auto) (test code = 704-7) 0.1 0.0-0.1 [facility] HospitalFluoroscopic procedure less than one hour fycbqqlt4805-47-53 04:18:00* Test Item Value Reference Range Interpretation Comments Absolute Immature Granulocyte (auto (gali t code = Absolute Immature Granulocyte (auto) 0.05 0-0.1 [facility]ererum or plasma sodium measurement (moles/volume)2020-05-21 04:18:00* Test Item Value Reference Range Interpretation Comments Sodium Level (test code = 2951-2) 136 136-145 [facility]ererum or plasma potassium measurement (moles/volume)2020-05-21 04:18:00* Test Item Value Reference Range Interpretation Comments Potassium Level (test code = 2823-3) 4.2 3.5-5.1 [facility]ererum or plasma chloride measurement (moles/volume)2020-05-21 04:18:00* Test Item Value Reference Range Interpretation Comments Chloride Level (test code = 2075-0) 103 98-107 [facility]ererum or plasma carbon dioxide, total measurement (moles/volume)2020-05-21 04:18:00* Test Item Value Reference Range Interpretation Comments Carbon Dioxide Level (test code = 2028-9) 23 22-29 [facility]ererum or plasma anion pmx9180-71-81 04:18:00* Test Item Value Reference Range Interpretation Comments Anion Gap (test code = 66029-5) 14.2 8-16 [facility]ere[facility] or plasma urea nitrogen measurement (mass/volume)2020-05-21 04:18:00* Test Item Value Reference Range Interpretation Comments Blood Urea Nitrogen (test code = 3094-0) 11 - [facility]ererum or plasma creatinine measurement (mass/volume)2020-05-21 04:18:00* Test Item Value Reference Range Interpretation Comments Creatinine (test code = 2160-0) 0.88 0.57-1.11 [facility]ererum or plasma urea nitrogen/creatinine mass ubkyo2998-17-44 04:18:00* Test Item Value Reference Range Interpretation Comments BUN/Creatinine Ratio (test code = 3097-3) 13 02-18 [facility] HospitalEstimated glomerular filtration rate (GFR) qmwfiwsxtigwu3097-73-30 04:18:00* Test Item Value Reference Range Interpretation Comments Estimat Glomerular Filtration Rate (test code = 900433941) > 60 >60 Ranges were taken from the National Kidney Disease Education Program and the [facility] Kidney Foundation literature.Reference ranges:60 or greater: Hqzoza71-27 ( for 3 consecutive months): Chronic kidney disease 15 or less: Kidney failureCHRISTUS Saint Michael HospitalGlucose yueukivjxnf1921-26-13 04:18:00* Test Item Value Reference Range Interpretation Comments Glucose Level (test code = PCC3941) 134 74-118 [facility]ere[facility] or plasma calcium measurement (mass/volume)2020-05-21 04:18:00* Test Item Value Reference Range Interpretation Comments Calcium Level (test code = 60826-1) 8.8 8.4-10.2 [facility]ere[facility] or plasma total bilirubin measurement (mass/volume)2020-05-21 04:18:00* Test Item Value Reference Range Interpretation Comments Total Bilirubin (test code = 1975-2) 0.3 0.2-1.2 [facility] HospitalFluoroscopic procedure less than one hour xjbgzkrx4241-05-74 04:18:00* Test Item Value Reference Range Interpretation Comments Aspartate Amino Transf (AST/SGOT) (test code = Aspartate Amino Transf (AST/SGOT)) 13 [facility]ererum or plasma alanine aminotransferase measurement (enzymatic activity/volume)2020-05-21 04:18:00* Test Item Value Reference Range Interpretation Comments Alanine Aminotransferase (ALT/SGPT) (test code = 1742-6) 11 0-55 [facility]ererum or plasma protein measurement (mass/volume)2020-05-21 04:18:00* Test Item Value Reference Range Interpretation Comments Total Protein (test code = 2885-2) 8.3 6.5-8.1 [facility]ererum or plasma albumin measurement (mass/volume)2020-05-21 04:18:00* Test Item Value Reference Range Interpretation Comments Albumin (test code = 1751-7) 4.2 3.5-5.0 [facility] HospitalPlasma globulin measurement (mass/volume) 2020-05-21 04:18:00* Test Item Value Reference Range Interpretation Comments Globulin (test code = 78538-7) 4.1 2.3-3.5 [facility] or plasma albumin/globulin mass nwlfq9511-23-30 04:18:00* Test Item Value Reference Range Interpretation Comments Albumin/Globulin Ratio (test code = 1759-0) 1.0 0.8-2.0 [facility]ererum or plasma alkaline phosphatase measurement (enzymatic activity/volume)2020-05-21 04:18:00* Test Item Value Reference Range Interpretation Comments Alkaline Phosphatase (test code = 6768-6) 110 40-150 [facility]ererum or plasma lipase measurement (enzymatic activity/volume)2020-05-21 04:18:00* Test Item Value Reference Range Interpretation Comments Lipase (test code = 3040-3) 29 8-78 [facility] HospitalBlood Pnomfvz4469-81-37 10:20:00* Test Item Value Reference Range Interpretation Comments Blood Culture (test code = 20811990) NO GROWTH AFTER 5 DAYS, FINAL REPORT [facility] HospitalThyroid Stimulating Hormone (TSH) 2019-07-14 07:36:00* Test Item Value Reference Range Interpretation Comments Thyroid Stimulating Hormone (TSH) (test code = 56642-2) 2.789 0.350-4.940 [facility] HospitalPhosphorus Vulqn6812-18-35 07:26:00* Test Item Value Reference Range Interpretation Comments Phosphorus Level (test code = TSK5031) 1.9 2.3-4.7 L [facility] HospitalMagnesium Izptk5176-99-51 07:26:00* Test Item Value Reference Range Interpretation Comments Magnesium Level (test code = 28909-9) 2.0 1.3-2.1 [facility] HospitalVitamin B12 Htjyi2241-22-33 07:26:00* Test Item Value Reference Range Interpretation Comments Vitamin B12 Level (test code = 03723-1) 173 213-816 L [facility] Centerodium Qciwb4993-37-32 06:39:00* Test Item Value Reference Range Interpretation Comments Sodium Level (test code = 2951-2) 132 136-145 L [facility] HospitalPotassium Gxprv4932-37-26 06:39:00* Test Item Value Reference Range Interpretation Comments Potassium Level (test code = 2823-3) 4.2 3.5-5.1 [facility] HospitalChloride Epbez1975-81-17 06:39:00* Test Item Value Reference Range Interpretation Comments Chloride Level (test code = 2075-0) 102 98-107 [facility] HospitalCarbon Dioxide Kbhtf3850-55-47 06:39:00* Test Item Value Reference Range Interpretation Comments Carbon Dioxide Level (test code = 2028-9) 25 22-29 [facility] HospitalAnion Qhj9283-73-15 06:39:00* Test Item Value Reference Range Interpretation Comments Anion Gap (test code = 90559-4) 9.2 8-16 [facility] HospitalBlood Urea Frbiriof8505-53-69 06:39:00* Test Item Value Reference Range Interpretation Comments Blood Urea Nitrogen (test code = 3094-0) 13 7-26 [facility] HospitalCreatinine2019-11-18 06:39:00* Test Item Value Reference Range Interpretation Comments Creatinine (test code = 2160-0) 0.62 0.57-1.11 [facility] HospitalBUN/Creatinine Xynbd9129-35-34 06:39:00* Test Item Value Reference Range Interpretation Comments BUN/Creatinine Ratio (test code = 3097-3) 21 6-25 [facility] HospitalEstimat Glomerular Filtration Rate 2019-07-14 06:39:00* Test Item Value Reference Range Interpretation Comments Estimat Glomerular Filtration Rate (test code = 475302974) > 60 >60 Ranges were taken from the National Kidney Disease Education Program and the [facility] Kidney Foundation literature.Reference ranges:60 or greater: Vuvjmn40-75 ( for 3 consecutive months): Chronic kidney disease 15 or less: Kidney failureCHRISTUS Saint Michael HospitalGlucose Fxbco5008-55-82 06:39:00* Test Item Value Reference Range Interpretation Comments Glucose Level (test code = LEU1956) 94 74-118 [facility] HospitalCalcium Aznre9074-43-47 06:39:00* Test Item Value Reference Range Interpretation Comments Calcium Level (test code = 45580-5) 8.5 8.4-10.2 [facility] HospitalWhite Blood Dsvnc0277-97-73 06:14:00* Test Item Value Reference Range Interpretation Comments White Blood Count (test code = 6690-2) 14.82 4.8-10.8 H [facility] HospitalRed Blood Znanv8055-74-54 06:14:00* Test Item Value Reference Range Interpretation Comments Red Blood Count (test code = 789-8) 3.15 3.6-5.1 L [facility] HospitalHemoglobin2019-11-18 06:14:00* Test Item Value Reference Range Interpretation Comments Hemoglobin (test code = 33579-0) 9.4 12.0-16.0 L [facility] HospitalHematocrit2019-11-18 06:14:00* Test Item Value Reference Range Interpretation Comments Hematocrit (test code = 4544-3) 27.4 34.2-44.1 L [facility] HospitalMean Corpuscular Gzycpi0513-74-20 06:14:00* Test Item Value Reference Range Interpretation Comments Mean Corpuscular Volume (test code = 787-2) 87.0 81-99 [facility] HospitalMean Corpuscular Qjqxnnfwek7963-11-98 06:14:00* Test Item Value Reference Range Interpretation Comments Mean Corpuscular Hemoglobin (test code = 785-6) 29.8 28-32 [facility] HospitalMean Corpuscular Hemoglobin Concent 2019-07-14 06:14:00* Test Item Value Reference Range Interpretation Comments Mean Corpuscular Hemoglobin Concent (test code = 786-4) 34.3 31-35 [facility] HospitalRed Cell Distribution Vdxlu7201-28-95 06:14:00* Test Item Value Reference Range Interpretation Comments Red Cell Distribution Width (test code = 18418-8) 14.1 11.7 -14.4 [facility] HospitalPlatelet Evpon1514-23-07 06:14:00* Test Item Value Reference Range Interpretation Comments Platelet Count (test code = 777-3) 298 140-360 [facility] HospitalNeutrophils (%) (Auto)2019-07-14 06:14:00 * Test Item Value Reference Range Interpretation Comments Neutrophils (%) (Auto) (test code = 06098-3) 65.4 38.7-80.0 [facility] HospitalLymphocytes (%) (Auto)2019-07-14 06:14:00 * Test Item Value Reference Range Interpretation Comments Lymphocytes (%) (Auto) (test code = 736-9) 21.4 18.0-39.1 [facility] HospitalMonocytes (%) (Auto)2019-07-14 06:14:00* Test Item Value Reference Range Interpretation Comments Monocytes (%) (Auto) (test code = 5905-5) 8.3 4.4-11.3 [facility] HospitalEosinophils (%) (Auto)2019-07-14 06:14:00 * Test Item Value Reference Range Interpretation Comments Eosinophils (%) (Auto) (test code = 713-8) 2.6 0.0-6.0 [facility] HospitalBasophils (%) (Auto)2019-07-14 06:14:00* Test Item Value Reference Range Interpretation Comments Basophils (%) (Auto) (test code = 706-2) 0.3 0.0-1.0 [facility] HospitalIM GRANULOCYTES %2019-07-14 06:14:00* Test Item Value Reference Range Interpretation Comments IM GRANULOCYTES % (test code = IM GRANULOCYTES %) 2.0 0.0- 1.0 H [facility] HospitalNeutrophils # (Auto)2019-07-14 06:14:00* Test Item Value Reference Range Interpretation Comments Neutrophils # (Auto) (test code = 751-8) 9.7 2.1-6.9 H [facility] HospitalLymphocytes # (Auto)2019-07-14 06:14:00* Test Item Value Reference Range Interpretation Comments Lymphocytes # (Auto) (test code = 78746-9) 3.2 1.0-3.2 [facility] HospitalMonocytes # (Auto)2019-07-14 06:14:00* Test Item Value Reference Range Interpretation Comments Monocytes # (Auto) (test code = 742-7) 1.2 0.2-0.8 H [facility] HospitalEosinophils # (Auto)2019-07-14 06:14:00* Test Item Value Reference Range Interpretation Comments Eosinophils # (Auto) (test code = 711-2) 0.4 0.0-0.4 [facility] HospitalBasophils # (Auto)2019-07-14 06:14:00* Test Item Value Reference Range Interpretation Comments Basophils # (Auto) (test code = 704-7) 0.1 0.0-0.1 [facility] HospitalAbsolute Immature Granulocyte (auto 2019-07-14 06:14:00* Test Item Value Reference Range Interpretation Comments Absolute Immature Granulocyte (auto (gali t code = Absolute Immature Granulocyte (auto) 0.29 0-0.1 H [facility] HospitalBedside Ioginrg7294-61-82 03:32:00* Test Item Value Reference Range Interpretation Comments Bedside Glucose (test code = 07122-1) 149 70-120 H Meter ID: [id number] HarlingenTotal Bilirubin 2019-07-12 08:33:00* Test Item Value Reference Range Interpretation Comments Total Bilirubin (test code = 1975-2) 1.1 0.2-1.2 [facility] HospitalAspartate Amino Transf (AST/SGOT) 2019-07-12 08:33:00* Test Item Value Reference Range Interpretation Comments Aspartate Amino Transf (AST/SGOT) (test code = Aspartate Amino Transf (AST/SGOT)) 16 5-34 [facility] HospitalAlanine Aminotransferase (ALT/SGPT) 2019-07-12 08:33:00* Test Item Value Reference Range Interpretation Comments Alanine Aminotransferase (ALT/SGPT) (test code = 1742-6) 9 0-55 [facility] HospitalTotal Igwbbox1342-54-14 08:33:00* Test Item Value Reference Range Interpretation Comments Total Protein (test code = 2885-2) 6.5 6.5-8.1 [facility] HospitalAlbumin2019-11-16 08:33:00* Test Item Value Reference Range Interpretation Comments Albumin (test code = 1751-7) 2.7 3.5-5.0 L [facility] HospitalGlobulin2019-11-16 08:33:00* Test Item Value Reference Range Interpretation Comments Globulin (test code = 95409-1) 3.8 2.3-3.5 H [facility] HospitalAlbumin/Globulin Hgvfd7646-96-81 08:33:00 * Test Item Value Reference Range Interpretation Comments Albumin/Globulin Ratio (test code = 1759-0) 0.7 0.8-2.0 L [facility] HospitalAlkaline Mpcedhtsogo9313-08-51 08:33:00* Test Item Value Reference Range Interpretation Comments Alkaline Phosphatase (test code = 6768-6) 66 40-150 [facility] HospitalUrine Frnfoyw3465-00-65 08:07:00* Test Item Value Reference Range Interpretation Comments Urine Culture (test code = 630-4) No Result Data Provided [facility] HospitalProthrombin Zepj1864-05-70 06:47:00* Test Item Value Reference Range Interpretation Comments Prothrombin Time (test code = 5902-2) 15.7 11.9-14.5 H [facility] HospitalProthromb Time International Ratio 2019-07-10 06:47:00* Test Item Value Reference Range Interpretation Comments Prothromb Time International Ratio (test code = 6301-6) 1.19 Oral Anticoagulant Therapy INR Values:1. Low Intensity Therapy 1.5 - 2.02 . Moderate Intensity Therapy 2.0 - 3.03. High Intensity Therapy(1) 2.5 - 3. 54. High Intensity Therapy(2) 3.0 - 4.05. Panic Value INR > 5.0 [facility] HospitalCreatine Kinase DB6257-38-56 06:39:00* Test Item Value Reference Range Interpretation Comments Creatine Kinase MB (test code = 97782-9) 1.50 0-5.0 [facility] HospitalTroponin I8763-47-58 06:39:00* Test Item Value Reference Range Interpretation Comments Troponin I (test code = UUE7501) < 0.001 0-0.300 [facility] HospitalCreatine Codnhm6080-98-25 06:38:00* Test Item Value Reference Range Interpretation Comments Creatine Kinase (test code = 2157-6) 176 29-168 H [facility] HospitalCHEST SINGLE (PORTABLE)2019-07-10 06:37:00 [place] [address] Patient Name: BUBBA LY MR #: [id number] : 1940 Age/Sex: 79/F Req #: [id number] Adm Physician: LAURA PRUITT MD Ordered by: MINAL ARMSTRONG MD Report #: [id number] Location: ICU Room/Bed: ICU [facility] Procedure: [id number] DX/C HEST SINGLE (PORTABLE) Exam Date: 07/10/19 Exam Time : 06 REPORT STATUS: Signed EXA MINATION: CHEST SINGLE (PORTABLE) COMPARISON: Chest x-ray 07/09/2019 INDICATION: Sepsis sepsis [id number] DISCUSSION: Front al view of the chest obtained at 0552 hours. Lung volumes are low. HEART AN D MEDIASTINUM: The heart is top normal in size to mildly enlarged. LINES : None. LUNGS: Central pulmonary vasculature is prominent due to low lung volumes. No gross infiltrates. PLEURA: No pleural effusion or pneumotho rax. BONES AND SOFT TISSUES: No focal osseous lesion. The soft tissues are normal. IMPRESSION: Compromised examination due to low lung volumes. This results in prominence of the central pulmonary vasculature. No infiltrat es on this image. Signed by: Dr. Justin Estevez MD on 07/10/2019 6:39 A M Dictated By: JUSTIN ESTEVEZ MD 8 Transcribed By: EMMA on 07/10/19638 COPY TO: MINAL ARMSTRONG MD Lactic Acid Catxe7554-88-41 14:53:00* Test Item Value Reference Range Interpretation Comments Lactic Acid Level (test code = Lactic Acid Level) 1.6 0.5- 2.0 [facility] HospitalActivated Partial Thromboplast Time 2019-07-09 12:39:00* Test Item Value Reference Range Interpretation Comments Activated Partial Thromboplast Time (test code = 78019-2) > 150.0 23.8-35.5 HH Results repeated and called to ruddy ivory at 1237 on 07/09/19 by Ian dyer Read back and verified.[facility]ool Occult Cclky1040-93-66 12:33:00* Test Item Value Reference Range Interpretation Comments Stool Occult Blood (test code = 2335-8) POSITIVE NEGATIVE H [facility] HospitalCT ABDOMEN/PELVIS VD3668-10-44 12:07:00 [place] [address] Patient Name: BUBBA LY MR #: [id number] : 1940 Age/Sex: 79/F Req #: [id number] Adm Physician: Ordered by: DELMIS STEVEN MD Report #: [id number] Location: ER Room/Bed: Procedure: [id number] CT /CT ABDOMEN/PELVIS WO Exam Date: 07/09/19 Exam Time: 1100 REPORT STATUS: Signed EXAM: CT Abdomen and Pelvis WITHOUT intravenous contrast INDICATION: Abdominal pain, diarrhea COMPARISON: None TECHNIQUE: Abdomen and pelvis were s canned utilizing a multidetector helical scanner from the lung base to the pub ic symphysis without administration of IV contrast. Coronal and sagittal refor mations were obtained. IV CONTRAST: None ORAL CONTRAST: None COMPLICATIONS: None RADIATION DOSE: Total DLP: 522.7 mGy*cm Dose modulation, iterative reconstruction, and/or weight based adjustment of the mA/kV was utilized to reduce the radiation dose to as low as reasonably achievable. FINDINGS: LOWER THORAX: Mild bibasilar dependent subsegment al atelectasis. Mild scattered coronary artery atherosclerotic calcifications. Moderate hiatal hernia. HEPATOBILIARY: No focal liver lesion. Unremarkable gallbladder. SPLEEN: No splenomegaly. PANCREAS: No focal masses or du ctal dilatation. ADRENALS: No adrenal nodules. KIDNEYS/URETERS: No hydron ephrosis, stones, or solid mass lesions. PELVIC ORGANS/BLADDER: Small amount o f air in the bladder. PERITONEUM / RETROPERITONEUM: No free air or fluid. LYMPH NODES: No lymphadenopathy. VESSELS: Atherosclerotic calcifications of t he nonaneurysmal abdominal aorta and major branches. GI TRACT: Approximat michele 15 cm loop of abnormally thickened small bowel in the pelvis with wall thi ckness measuring up to 16 mm. There is substantial significant mesenteric fat stranding and fluid and a small amount of free air (series 2 image 72). There is mild swelling of the mesenteric vessels. Diffuse colonic diverticulosis inc luding of the right colon without CT evidence of diverticulitis. Mild diffuse pericolonic fat stranding is likely reactive. Normal appendix. BONES AND SOFT TISSUES: No acute osseous injury. No suspicious lytic or blastic lesions. Marked degenerative changes of the visualized spine. Grade 1 retrolisthesis at L1-2, L2-3 and L3-4 and grade 1 anterolisthesis at L4-5. IMPRESSION: L oop of abnormally thickened small bowel in the pelvis with small amount of scotty e air consistent with perforation. Significant associated mesenteric inflammat ion with mild swirling of the superior mesenteric branches leading up to the a ffected loop. Findings are concerning for severe enteritis with possible bowel ischemia. Surgical consult is recommended. The above findings were discuss ed with Dr. Steven on 07/09/2019 12:07 PM, who responded indicating that the co mmunication was understood. Signed by: Kristofer Monge MD on 07/09/2019 12:16 P M Dictated By: KRISTOFER MONGE MD 1216 Transcribed By: EMMA on 07/09/19 1216 COPY TO: Shadi STEVEN MD CT CERVICAL SPINE [id number] 12:06:00 [place] [address] Patient Name: BUBBA LY MR #: [id number] : 1940 Age/Sex: 79/F Req #: [id number] Adm Physician: Ordered by: DELMIS STEVEN MD Report #: [id number] Location: ER Room/Bed: Procedure: [id number] CT /CT CERVICAL SPINE WO Exam Date: 07/09/19 Exam Time: 1100 REPORT STATUS: Signed Exam ination: CT CERVICAL SPINE WO CONTRAST HISTORY:Neck injury after fall. CO MPARISON:None. TECHNIQUE: Multidetector helical axial images were obtained wit hout contrast from the foramen magnum to T1. Coronal and sagittal reformatted images were done. Bone and soft tissue windows were evaluated. Dose modula tion, iterative reconstruction, and/or weight based adjustment of the mA/kV wa s utilized to reduce the radiation dose to as low as reasonably achievable. FINDINGS: Alignment:Normal alignment and lordosis. Mild retrolisthesis of C3 on C4 and C4 on C5. Vertebrae: Normal height and density. No acute fra cture, infection or neoplasm. Disc space heights: Mildly narrowed at C4-C5. Caliber of spinal canal: Developmentally normal. Posterior fossa and cran iocervical junction: Foramen magnum patent. No Chiari 1 malformation. Sof t tissues: Opacified left middle ear cavity with sclerosis of the mastoid air cells. Partial opacification of the mastoid cavity on the right. There is supe rficial/subcutaneous emphysema in the left clavicular region, which could be f rom recent attempt of a procedure. Degenerative changes: Diffuse disc ost eophyte complex at C3-C4 and mild bilateral uncovertebral and facet arthropath y result in mild right neural foraminal narrowing. No left foraminal or canal stenosis. C4-C5: Asymmetric to the right disc osteophyte complex and right unc overtebral and bilateral facet arthropathy result in moderate right neural for aminal narrowing. No left foraminal or canal stenosis. C5-C6: Severe right f acet arthropathy results in mild right neural foraminal narrowing at C5-C6. No left foraminal or canal stenosis. Remaining cervical levels demonstrate no di sc herniation or canal stenosis. Visualized lung apices: No abnormalities . IMPRESSION: No acute fracture of the cervical spine. Signed by: Dr Thea Blake M.D. on 07/09/2019 12:11 PM Dictated By: PRIYA DURÁN MD 1211 COPY TO: DELMIS STEVEN MD CT BRAIN [id number] 11:56:00 [facility] [address] [place] [address] Patient Name: BUBBA LY MR #: [id number] : 1940 Age/Sex: 79/F Req #: [id number] Adm Physician: Ordered by: DELMIS STEVEN MD Report #: [id number] Location: ER Room/Bed: Procedure: [id number] CT /CT BRAIN WO Exam Date: 07/09/19 Exam Time: 1100 REPORT STATUS: Signed Examination: CT BRAIN WO CONTRAST History:Unresponsive. Confusion. Weakness. Fall on Cou madin Comparison studies:None Technique: Axial images were obtained fro m the skull base to the vertex. Coronal and sagittal images reconstructed from the axial data. Dose modulation, iterative reconstruction, and/or weight based adjustment of the mA/kV was utilized to reduce the radiation dose to as low as reasonably achievable. Intravenous contrast: None Findings: Sc alp: No abnormalities. Bones: No fractures, blastic or lytic lesions. Bra in sulci: Appropriate for age. Ventricles: Normal in size and configuration. N o hydrocephalus. Extra-axial space: No abnormalities. Parenchyma: No masses, hemorrhage, or acute cortical based vascular insults. There is cor tical base encephalomalacia involving the left superior parietal lobule and ex tending to the left periventricular/periatrial white matter. Chronic lacunar i nfarct in the right centrum semiovale. There are patchy and confluent areas o f hypoattenuation in the periventricular and subcortical white matter, nonspec ific. Sellar/suprasellar region: No abnormalities. Craniocervical juncti on: Patent foramen magnum. No Chiari one malformation. Incidental findings: Atherosclerotic calcification of the cavernous and supraclinoid internal c arotid and V4 segments of the bilateral vertebral arteries. Impression: No acute intracranial abnormality. Chronic right MCA-POULTRY SLAUGHTERER infarct. Severe chronic microvascular ischemic change. Signed by: Dr. Priya barnes M.D. on 07/09/2019 12:02 PM Dictated By: PRIYA LINDO MD 120 Transcr ibed By: EMMA on 07/09/19 1202 COPY TO: DELMIS STEVEN MD CHEST SINGLE (PORTABLE)2019-07-09 11:22:00 [place] [address] Patient Name: BUBBA LY MR #: [id number] : 1940 Age/Sex: 79/F Req #: [id number] Adm Physician: Ordered by: DELMIS STEVEN MD Report #: [id number] Location: ER Room/Bed: Procedure: [id number] DX /CHEST SINGLE (PORTABLE) Exam Date: 07/09/19 Exam Ti me: 1050 REPORT STATUS: Signed E XAMINATION: CHEST SINGLE (PORTABLE) INDICATION: Altered mental status COMPARISON: None FINDINGS: LINES/TUBES:EKG leads overlie the chest. LUNGS:The lung volumes are low. No focal consolidation or pulmonary edema. PLEURA:No pleural effusion or pneumothorax. MEDIASTINUM:The ca rdiomediastinal silhouette appears normal in size and shape. Atherosclerotic c alcifications of the thoracic aorta. BONES/SOFT TISSUES:No acute osseous in jury. ABDOMEN:No free air under the diaphragm. IMPRESSION: Low l pao volumes. No focal pneumonia or pulmonary edema. Signed by: Kristofer Monge MD on 07/09/2019 11:23 AM Dictated By: KRISTOFER MONGE MD Electronically Sign ed By: KRISTOFER MONGE MD on 07/09/191122 Transcribed By: EMMA on 07/09/191122 COPY TO: DELMIS STEVEN MD PELVIS AP 1-2 [id number] 11:21:00 [place] [address] Patient Name: BUBBA LY MR #: [id number] : [birth year] Age/Sex: 79/F Req #: [id number] Adm Physician: Ordered by: DELMIS STEVEN MD Report #: [id number] Location: ER Room/Bed: Procedure: [id number] DX /PELVIS AP 1-2 VIEWS Exam Date: 07/09/19 Exam Time: 1050 REPORT STATUS: Signed EXAMI NATION: PELVIS AP 1-2 VIEWS INDICATION: Altered mental status, fall COMPARISON: None FINDINGS: No acute fracture or dislocation. A lignment is anatomic. Degenerative changes of the lower lumbar spine and both hip joints. Phleboliths in the pelvis. Nonobstructive bowel gas pattern. No fr ee air. IMPRESSION: No acute osseous injury. Signed by: Kristofer Monge MD on 07/09/2019 11:22 AM Dictated By: KRISTOFER MONGE MD Electronically Sig sybil By: KRISTOFER MONGE MD on 07/09/191121 Transcribed By: EMMA on 07/09/191121 COPY TO: DELMIS STEVEN MD Urine [id number] 10:52:00* Test Item Value Reference Range Interpretation Comments Urine WBC (test code = 5821-4) >50 0-[address] [id number] 10:52:00* Test Item Value Reference Range Interpretation Comments Urine RBC (test code = 07781-1) 11-20 0-5 H [facility] HospitalU[facility] Yqgpyqdn9471-48-28 10:52:00* Test Item Value Reference Range Interpretation Comments Urine Bacteria (test code = 09125-9) MANY NONE H [facility] HospitalUrine Epithelial Jcqzv7205-98-10 10:52:00 * Test Item Value Reference Range Interpretation Comments Urine Epithelial Cells (test code = 72194-3) MANY NONE [facility] HospitalUrine Amorphous Fgbttwcf5637-37-88 10:52:00* Test Item Value Reference Range Interpretation Comments Urine Amorphous Sediment (test code = 8246-1) FEW FEW [facility] HospitalB-Type Natriuretic Fyrucnn4278-08-38 10:51:00* Test Item Value Reference Range Interpretation Comments B-Type Natriuretic Peptide (test code = 74008-7) 30.0 0-100 [facility] HospitalUrine Psvbs5272-95-64 10:48:00* Test Item Value Reference Range Interpretation Comments Urine Color (test code = 5778-6) YELLOW YELLOW [facility] HospitalUrine Vxpnakb5898-22-34 10:48:00* Test Item Value Reference Range Interpretation Comments Urine Clarity (test code = 89346-2) CLEAR CLEAR [facility] HospitalUrine Specific Vdlgdkk5724-74-06 10:48:00 * Test Item Value Reference Range Interpretation Comments Urine Specific [place] (test code = 5811-5) 1.025 1.010-1.02 5 [facility] HospitalUrine [id number] 10:48:00* Test Item Value Reference Range Interpretation Comments Urine pH (test code = 15614-6) 5.5 5-7 [facility] Hospital[facility] Leukocyte Cpoikczf8599-10-38 10:48:00* Test Item Value Reference Range Interpretation Comments Urine Leukocyte Esterase (test code = 11203-4) SMALL NEGATIV E [facility] HospitalU[facility] Qkwcjmc8983-66-64 10:48:00* Test Item Value Reference Range Interpretation Comments Urine Nitrite (test code = 70096-4) NEGATIVE NEGATIVE [facility] HospitalUrine Rbmzkzi2689-59-51 10:48:00* Test Item Value Reference Range Interpretation Comments Urine Protein (test code = 24517-2) NEGATIVE NEGATIVE [facility] HospitalUrine Glucose (UA)2019-07-09 10:48:00* Test Item Value Reference Range Interpretation Comments Urine Glucose (UA) (test code = 29352-7) NEGATIVE NEGATIVE [facility] HospitalU[facility] Ywucxkb9263-66-95 10:48:00* Test Item Value Reference Range Interpretation Comments Urine Ketones (test code = 39271-7) NEGATIVE NEGATIVE [facility] HospitalUrine Nozihamzdcyz9951-32-46 10:48:00* Test Item Value Reference Range Interpretation Comments Urine Urobilinogen (test code = 34067-5) 0.2 0.2-1 [facility] HospitalUrine Nbqnygain3288-94-99 10:48:00* Test Item Value Reference Range Interpretation Comments Urine Bilirubin (test code = 1977-8) NEGATIVE NEGATIVE [facility] HospitalU[facility] Oexjn7519-71-66 10:48:00* Test Item Value Reference Range Interpretation Comments Urine Blood (test code = 59541-0) TRACE NEGATIVE [facility]
== END 2020-05-21 07:02 | disposition home or self-care (01) ==
LOC: ER 04:25
DX: N39.0 Urinary tract infection, site not specified (principal); R30.0 Dysuria; R10.31 Right lower quadrant pain; I10 Essential (primary) hypertension; E78.5 Hyperlipidemia, unspecified; I48.91 Unspecified atrial fibrillation; Z86.73 Personal history of transient ischemic attack (TIA), and cerebral infarction without residual deficits
CPT/HCPCS: 36415; 74177; 80053; 81001; 83690; 85025; 99284; J2270; J7040; Q9967

== ENCOUNTER 2020-08-26 18:27 | Inpatient (IN) | payer MEDICARE, OTHER ==
[~2020-08-26] VITALS: Ht 154.9 cm; Wt 73.5 kg
[2020-08-26] MEDS ORDERED: TRICOR48 MG PO (18:38)
[2020-08-26] MEDS ORDERED: FOLIC ACID PO (18:38)
[2020-08-26] MEDS ORDERED: OMEPRAZOLE40 MG PO (18:38)
[2020-08-26] MEDS ORDERED: CARVEDILOL12.5 MG PO (18:38)
[2020-08-26] MEDS ORDERED: NIFEDIPINE ER30 M1 PO (18:38)
[2020-08-26] MEDS ORDERED: ELIQUIS2.5 MG PO (18:38)
[2020-08-26] MEDS ORDERED: ACETAMINOPHEN 325 MG TAB PO ONE (18:45)
[2020-08-26] MEDS ORDERED: CEFTRIAXONE SOD 1 GM/NS 50 ML 50 ML IV ONE (18:45)
[2020-08-26] MEDS ORDERED: SODIUM CHLORIDE 0.9% 1000ML 1,000 ML IV ONE ×2 (18:45→21:45)
[2020-08-26 19:11] LABS: BASOPHILS % 0.3 % (0.0-1.0); EOSINOPHILS % 0.3 % (0.0-6.0); HEMOGLOBIN 12.4 g/dL (12.0-16.0); LYMPHOCYTES # (AUTO) 0.8 (1.0-3.2); LYMPHOCYTES % 6.3 % (18.0-39.1); MEAN CORPUSCULAR HEMOGLOBIN 29.2 pg (28-32); MEAN CORPUSCULAR HGB CONC 33.5 g/dL (31-35); MEAN CORPUSCULAR VOLUME 87.3 fL (81-99); MONOCYTES # (AUTO) 0.3 (0.2-0.8); MONOCYTES % 2.1 % (4.4-11.3); NEUTROPHILS # (AUTO) 10.7 (2.1-6.9); NEUTROPHILS % 89.4 % (38.7-80.0); PLATELET COUNT 224 x10e3/uL (140-360); RED BLOOD COUNT 4.24 x10e6/uL (3.6-5.1); RED CELL DISTRIBUTION WIDTH 13.5 % (11.7-14.4)
[2020-08-26 19:24] LABS: ALBUMIN/GLOBULIN RATIO 0.7 (0.8-2.0); ANION GAP 14.6 mmol/L (8-16); CALCIUM 8.2 mg/dL (8.4-10.2); CREATININE, SERUM 1.09 mg/dL (0.57-1.11); POTASSIUM 3.6 mmol/L (3.5-5.1)
[2020-08-26 19:30] LABS: CREATINE KINASE MB 0.4 ng/mL (0-5.0)
[2020-08-26 20:12] LABS: CLARITY,URINE SL CLOUDY (CLEAR); COLOR,URINE YELLOW (YELLOW); LEUKOCYTE ESTERASE ,URINE SMALL (NEGATIVE); NITRITE,URINE NEGATIVE (NEGATIVE)
[2020-08-26 20:13] LABS: KETONES,URINE NEGATIVE (NEGATIVE); PROTEIN,URINE DIPSTICK TRACE (NEGATIVE); URINE UROBILINOGEN 1 mg/dL (0.2 - 1)
[2020-08-26 20:24] LABS: BACTERIA,URINE MANY /HPF; EPITHELIAL CELLS,URINE MODERATE /LPF; RBC,URINE 0-5 /HPF (0-5)
[2020-08-26 20:25] LABS: AMORPHOUS SEDIMENT,URINE FEW (FEW); MUCUS,URINE FEW (RARE); TRANSITIONAL EPI CELLS,URINE FEW
[2020-08-26] MEDS ORDERED: AZITHROMYCIN 500MG/NS 250 ML 250 ML IV ONE (21:15)
[2020-08-26] MEDS ORDERED: ONDANSETRON HCL INJ 2MG/ML 2ML 2 MG/ML VIAL IV STA (21:32)
[2020-08-26] MEDS ORDERED: ACETAMINOPHEN 325 MG TAB PO PRN (21:45)
[2020-08-26] MEDS ORDERED: SODIUM CHLORIDE 0.9% 50ML 50 ML ONE (22:21)
[2020-08-26] MEDS ORDERED: IOPAMIDOL 370 MG/ML 200 ML INFUS..BTL INJ ONE (22:22)
[2020-08-26] MEDS: CEFTRIAXONE SOD 1 GRAM/0.9% SOD CHL 50ML BAG IV SCH (23:22)
[2020-08-26] MEDS: AZITHROMYCIN 500MG/SOD CHL 0.9% 250ML BAG IV SCH (23:32)
[2020-08-27] MEDS ORDERED: SODIUM CHLORIDE 0.9% 1000ML 1,000 ML IV ONE (02:45)
[2020-08-27 06:37] LABS: BASOPHILS % 0.3 % (0.0-1.0); EOSINOPHILS # (AUTO) 0.1 (0.0-0.4); EOSINOPHILS % 0.4 % (0.0-6.0); HEMATOCRIT 35.7 % (34.2-44.1); HEMOGLOBIN 11.9 g/dL (12.0-16.0); LYMPHOCYTES # (AUTO) 2.4 (1.0-3.2); LYMPHOCYTES % 19.6 % (18.0-39.1); MEAN CORPUSCULAR HEMOGLOBIN 30.1 pg (28-32); MEAN CORPUSCULAR HGB CONC 33.3 g/dL (31-35); MEAN CORPUSCULAR VOLUME 90.4 fL (81-99); MONOCYTES # (AUTO) 1.3 (0.2-0.8); MONOCYTES % 11.1 % (4.4-11.3); NEUTROPHILS # (AUTO) 8.2 (2.1-6.9); NEUTROPHILS % 68.1 % (38.7-80.0); PLATELET COUNT 215 x10e3/uL (140-360); RED BLOOD COUNT 3.95 x10e6/uL (3.6-5.1); RED CELL DISTRIBUTION WIDTH 13.6 % (11.7-14.4)
[2020-08-27 07:03] LABS: ALANINE AMINOTRANSFERASE 9 IU/L (0-55); ALBUMIN 2.7 g/dL (3.5-5.0); ALBUMIN/GLOBULIN RATIO 0.7 (0.8-2.0); ALKALINE PHOSPHATASE 56 IU/L (40-150); ANION GAP 9.5 mmol/L (8-16); BLOOD UREA NITROGEN 13 mg/dL (7-26); BUN/CREATININE RATIO 16 (6-25); CALCIUM 7.8 mg/dL (8.4-10.2); CARBON DIOXIDE 20 mmol/L (22-29); CHLORIDE 109 mmol/L (98-107); CREATININE, SERUM 0.83 mg/dL (0.57-1.11); EST GLOMERULAR FILTRATION RATE > 60 ML/MIN (60-); GLUCOSE 100 mg/dL (74-118); POTASSIUM 3.5 mmol/L (3.5-5.1); SODIUM 135 mmol/L (136-145)
[2020-08-27] MEDS: PANTOPRAZOLE SOD 40 MG TABEC PO SCH (10:13)
[2020-08-27] MEDS ORDERED: THIAMINE HCL INJ 100 MG/ML 2ML VIAL IV NR (10:15)
[2020-08-27 14:50] LABS: CREATINE KINASE MB 2.2 ng/mL (0-5.0)
[2020-08-27 15:50] VITALS: BP 178/85
[2020-08-27 16:51] VITALS: BP 178/85
[2020-08-27 17:00] VITALS: BP 178/85
[2020-08-27] MEDS: APIXAB 2.5 MG TABLET PO SCH (17:00)
[2020-08-27] MEDS: CARVEDILOL 12.5 MG TAB PO SCH (17:00)
[2020-08-27] MEDS: DEXTROSE 5%/0.45% SOD CHL 1,000 ML IV SCH (18:15)
[2020-08-27] MEDS ORDERED: HYDRALAZINE HCL 20 MG/ML VIAL IV PRN (18:15)
[2020-08-27] MEDS ORDERED: ACETAMINOPHEN 325 MG SUPP PR PRN (18:15)
[2020-08-27 18:18] VITALS: BP 174/55
[2020-08-27 20:00] VITALS: BP 139/64
[2020-08-27] MEDS ORDERED: NALOXONE HCL INJ 0.4 MG/ML AMP IV PRN (20:30)
[2020-08-27] MEDS: FENOFIBRATE 48 MG TAB PO SCH (21:00)
[2020-08-27] MEDS: AZITHROMYCIN 500MG/SOD CHL 0.9% 250ML BAG IV SCH (21:45)
[2020-08-27] MEDS: CEFTRIAXONE SOD 1 GRAM/0.9% SOD CHL 50ML BAG IV SCH (21:47)
[2020-08-27] MEDS: MORPHINE SULFATE INJ 4 MG/ML INJ 1ML IV PRN (21:52)
[2020-08-28] VITALS (8 sets, daily range): BP systolic 116–163; BP diastolic 55–85
[2020-08-28 06:54] LABS: BASOPHILS % 0.4 % (0.0-1.0); EOSINOPHILS # (AUTO) 0.1 (0.0-0.4); EOSINOPHILS % 0.9 % (0.0-6.0); HEMOGLOBIN 11.5 g/dL (12.0-16.0); LYMPHOCYTES # (AUTO) 1.7 (1.0-3.2); LYMPHOCYTES % 20.6 % (18.0-39.1); MEAN CORPUSCULAR HEMOGLOBIN 29.5 pg (28-32); MEAN CORPUSCULAR HGB CONC 32.9 g/dL (31-35); MEAN CORPUSCULAR VOLUME 89.7 fL (81-99); MONOCYTES # (AUTO) 1.2 (0.2-0.8); MONOCYTES % 14.4 % (4.4-11.3); NEUTROPHILS # (AUTO) 5.1 (2.1-6.9); NEUTROPHILS % 63.2 % (38.7-80.0); PLATELET COUNT 225 x10e3/uL (140-360); RED CELL DISTRIBUTION WIDTH 13.8 % (11.7-14.4)
[2020-08-28 07:12] LABS: ANION GAP 10.5 mmol/L (8-16); BLOOD UREA NITROGEN 10 mg/dL (7-26); BUN/CREATININE RATIO 12 (6-25); CALCIUM 7.7 mg/dL (8.4-10.2); CARBON DIOXIDE 23 mmol/L (22-29); CHLORIDE 105 mmol/L (98-107); CREATININE, SERUM 0.81 mg/dL (0.57-1.11); EST GLOMERULAR FILTRATION RATE > 60 ML/MIN (60-); GLUCOSE 115 mg/dL (74-118); POTASSIUM 3.5 mmol/L (3.5-5.1); SODIUM 135 mmol/L (136-145)
[2020-08-28] MEDS: PANTOPRAZOLE SOD 40 MG TABEC PO SCH ×2 (09:00→13:00)
[2020-08-28] MEDS: DEXTROSE 5%/0.45% SOD CHL 1,000 ML IV SCH ×2 (10:07→21:37)
[2020-08-28] MEDS: NIFEDIPINE CR 30 MG TAB PO SCH (12:59)
[2020-08-28] MEDS: APIXAB 2.5 MG TABLET PO SCH ×2 (12:59→18:10)
[2020-08-28] MEDS: CARVEDILOL 12.5 MG TAB PO SCH ×2 (12:59→18:10)
[2020-08-28] MEDS: DONEPEZIL HCL 5 MG TAB PO SCH (13:00)
[2020-08-28] MEDS: ATORVASTATIN 10 MG TAB PO SCH (20:49)
[2020-08-28] MEDS: FENOFIBRATE 48 MG TAB PO SCH (20:49)
[2020-08-28] MEDS: CEFTRIAXONE SOD 1 GRAM/0.9% SOD CHL 50ML BAG IV SCH (20:49)
[2020-08-28] MEDS: AZITHROMYCIN 500MG/SOD CHL 0.9% 250ML BAG IV SCH (21:37)
[2020-08-29] VITALS (8 sets, daily range): BP systolic 106–135; BP diastolic 74–85
[2020-08-29] MEDS: MORPHINE SULFATE INJ 4 MG/ML INJ 1ML IV PRN ×3 (00:43→23:12)
[2020-08-29] MEDS: DEXTROSE 5%/0.45% SOD CHL 1,000 ML IV SCH ×2 (10:15→14:51)
[2020-08-29] MEDS: DONEPEZIL HCL 5 MG TAB PO SCH (10:35)
[2020-08-29] MEDS: APIXAB 2.5 MG TABLET PO SCH ×2 (10:36→17:21)
[2020-08-29] MEDS: CARVEDILOL 12.5 MG TAB PO SCH ×2 (10:36→17:21)
[2020-08-29] MEDS: NIFEDIPINE CR 30 MG TAB PO SCH (10:37)
[2020-08-29] MEDS: PANTOPRAZOLE SOD 40 MG TABEC PO SCH (10:37)
[2020-08-29] MEDS: FENOFIBRATE 48 MG TAB PO SCH (21:10)
[2020-08-29] MEDS: CEFTRIAXONE SOD 1 GRAM/0.9% SOD CHL 50ML BAG IV SCH (21:10)
[2020-08-29] MEDS: ATORVASTATIN 10 MG TAB PO SCH (21:10)
[2020-08-29] MEDS: AZITHROMYCIN 500MG/SOD CHL 0.9% 250ML BAG IV SCH (21:47)
[2020-08-30] VITALS (8 sets, daily range): BP systolic 118–150; BP diastolic 64–104
[2020-08-30] MEDS: DEXTROSE 5%/0.45% SOD CHL 1,000 ML IV SCH ×2 (05:06→12:55)
[2020-08-30 05:45] LABS: BASOPHILS # (AUTO) 0.1 (0.0-0.1); BASOPHILS % 0.7 % (0.0-1.0); EOSINOPHILS # (AUTO) 0.2 (0.0-0.4); EOSINOPHILS % 2.7 % (0.0-6.0); HEMATOCRIT 38.7 % (34.2-44.1); LYMPHOCYTES # (AUTO) 2.3 (1.0-3.2); LYMPHOCYTES % 30.1 % (18.0-39.1); MEAN CORPUSCULAR HGB CONC 33.6 g/dL (31-35); MEAN CORPUSCULAR VOLUME 86.2 fL (81-99); MONOCYTES # (AUTO) 0.9 (0.2-0.8); MONOCYTES % 11.5 % (4.4-11.3); NEUTROPHILS # (AUTO) 4.1 (2.1-6.9); NEUTROPHILS % 54.5 % (38.7-80.0); PLATELET COUNT 230 x10e3/uL (140-360); RED BLOOD COUNT 4.49 x10e6/uL (3.6-5.1); RED CELL DISTRIBUTION WIDTH 13.6 % (11.7-14.4)
[2020-08-30 06:04] LABS: ANION GAP 12.2 mmol/L (8-16); BLOOD UREA NITROGEN 5 mg/dL (7-26); BUN/CREATININE RATIO 8 (6-25); CALCIUM 8.3 mg/dL (8.4-10.2); CARBON DIOXIDE 20 mmol/L (22-29); CHLORIDE 106 mmol/L (98-107); CREATININE, SERUM 0.62 mg/dL (0.57-1.11); EST GLOMERULAR FILTRATION RATE > 60 ML/MIN (60-); GLUCOSE 102 mg/dL (74-118); MAGNESIUM 1.9 MG/DL (1.3-2.1); POTASSIUM 3.2 mmol/L (3.5-5.1); SODIUM 135 mmol/L (136-145)
[2020-08-30] MEDS: PANTOPRAZOLE SOD 40 MG TABEC PO SCH (09:32)
[2020-08-30] MEDS: DONEPEZIL HCL 5 MG TAB PO SCH (09:32)
[2020-08-30] MEDS: NIFEDIPINE CR 30 MG TAB PO SCH (09:32)
[2020-08-30] MEDS: APIXAB 2.5 MG TABLET PO SCH ×2 (09:32→16:39)
[2020-08-30] MEDS: CARVEDILOL 12.5 MG TAB PO SCH ×2 (09:32→16:40)
[2020-08-30] MEDS ORDERED: LACTULOSE SYRUP 20 GM/30 ML UDC PO PRN (20:30)
[2020-08-30] MEDS: CEFTRIAXONE SOD 1 GRAM/0.9% SOD CHL 50ML BAG IV SCH (21:40)
[2020-08-30] MEDS: FENOFIBRATE 48 MG TAB PO SCH (21:40)
[2020-08-30] MEDS: ATORVASTATIN 10 MG TAB PO SCH (21:40)
[2020-08-30] MEDS: POLYETHYLENE GLYCOL 3350 17 GM PACK PO SCH (21:40)
[2020-08-30] MEDS: AZITHROMYCIN 500MG/SOD CHL 0.9% 250ML BAG IV SCH (22:40)
[2020-08-31 00:09] VITALS: BP 126/76
[2020-08-31] MEDS: DEXTROSE 5%/0.45% SOD CHL 1,000 ML IV SCH (02:53)
[2020-08-31 04:00] VITALS: BP 121/61
[2020-08-31 08:13] VITALS: BP 147/73
[2020-08-31 08:16] VITALS: BP 147/73
[2020-08-31] MEDS: DONEPEZIL HCL 5 MG TAB PO SCH (09:14)
[2020-08-31] MEDS: PANTOPRAZOLE SOD 40 MG TABEC PO SCH (09:14)
[2020-08-31] MEDS: APIXAB 2.5 MG TABLET PO SCH (09:14)
[2020-08-31] MEDS: POLYETHYLENE GLYCOL 3350 17 GM PACK PO SCH (09:14)
[2020-08-31] MEDS: CARVEDILOL 12.5 MG TAB PO SCH ×2 (09:46→16:11)
[2020-08-31] MEDS: NIFEDIPINE CR 30 MG TAB PO SCH (09:46)
[2020-08-31 11:52] VITALS: BP 125/68
[2020-08-31] MEDS ORDERED: ALPRAZOLAM 0.25 MG TAB PO ONE (12:00)
[2020-08-31] MEDS ORDERED: AZITHROMYCIN250 MG PO (14:45)
[2020-08-31] MEDS ORDERED: ARICEPT5 MG PO (14:45)
[2020-08-31] MEDS ORDERED: LIPITOR10 MG PO (14:45)
[2020-08-31] MEDS ORDERED: KEFLEX500 MG PO (14:45)
[2020-08-31] MEDS ORDERED: B-12500 MCG PO (14:53)
[2020-08-31] MEDS ORDERED: FUROSEMIDE 20 MG TAB PO ONE (15:30)
[2020-08-31] MEDS ORDERED: POTASSIUM CHLORIDE 20 MEQ TAB CR PO ONE (15:30)
[2020-08-31 15:42] VITALS: BP 144/78
== END 2020-08-31 16:30 | disposition home or self-care (01) | DRG 871 ==
LOC: ER 18:35 → ERHOLD 21:36 → MED/SURG2 08-27 15:47
PROVIDERS: ADMIT Internal Medicine; ATTEND Internal Medicine
DX: A41.51 Sepsis due to Escherichia coli [E. coli] (principal); J15.9 Unspecified bacterial pneumonia; G92 Toxic encephalopathy; N39.0 Urinary tract infection, site not specified; I48.20 Chronic atrial fibrillation, unspecified; I10 Essential (primary) hypertension; E78.5 Hyperlipidemia, unspecified; I69.320 Aphasia following cerebral infarction; F01.50 Vascular dementia, unspecified severity, without behavioral disturbance, psychotic disturbance, mood disturbance, and anxiety; H91.90 Unspecified hearing loss, unspecified ear; Z20.822 Contact with and (suspected) exposure to COVID-19; Z86.73 Personal history of transient ischemic attack (TIA), and cerebral infarction without residual deficits
CPT/HCPCS: 36415; 70450; 70544; 70551; 71045; 74177; 74230; 80048; 80053; 81001; 82550; 82553; 82948; 83605; 83735; 84484; 85025; 87040; 87071; 87086; 87186; 87205; 93005; 96360; 97139; 99285; J0360; J0456; J0696; J2270; J7030; Q9967; U0002

== ENCOUNTER → 2020-11-30 | Outpatient (CLI) | payer MEDICARE ==
[~2020-11-30] MED LIST changes: +ARICEPT5 MG PO; +ATORVASTATIN CA10 MG PO; +AUGMENTIN 875-1 EACH PO; +AZITHROMYCIN250 MG PO; +B-12500 MCG PO; +CARVEDILOL12.5 MG PO; +ELIQUIS2.5 MG PO; +FOLIC ACID PO; +KEFLEX500 MG PO; +LIPITOR10 MG PO; +NIFEDIPINE ER30 M1 PO; +OMEPRAZOLE40 MG PO; +TRICOR48 MG PO
[2020-11-30 11:46] LABS: BASOPHILS % 0.4 % (0.0-1.0); EOSINOPHILS # (AUTO) 0.2 (0.0-0.4); EOSINOPHILS % 1.5 % (0.0-6.0); HEMATOCRIT 38.2 % (34.2-44.1); HEMOGLOBIN 12.7 g/dL (12.0-16.0); LYMPHOCYTES # (AUTO) 3.1 (1.0-3.2); MEAN CORPUSCULAR HGB CONC 33.2 g/dL (31-35); MEAN CORPUSCULAR VOLUME 90.3 fL (81-99); MONOCYTES # (AUTO) 0.9 (0.2-0.8); MONOCYTES % 8.1 % (4.4-11.3); NEUTROPHILS # (AUTO) 6.8 (2.1-6.9); NEUTROPHILS % 61.3 % (38.7-80.0); PLATELET COUNT 358 x10e3/uL (140-360); RED BLOOD COUNT 4.23 x10e6/uL (3.6-5.1); RED CELL DISTRIBUTION WIDTH 13.7 % (11.7-14.4)
== END ==
LOC: DX 10:54 → EDSTATUS 12-02 10:30
PROVIDERS: ATTEND Internal Medicine Gastroenterology
DX: Z01.812 Encounter for preprocedural laboratory examination (principal); Z01.818 Encounter for other preprocedural examination; Z20.822 Contact with and (suspected) exposure to COVID-19; R13.10 Dysphagia, unspecified
CPT/HCPCS: 36415; 85025; 93005; U0002